=== PATIENT | female | born 1985 | race American Indian/Alaskan Native ===

== ENCOUNTER 2020-09-22 16:29 | Outpatient (CLI) | payer OTHER ==
[2020-09-22] MEDS ORDERED: LACTATED RINGERS 1,000 ML IV ONE (16:55)
[2020-09-22 17:49] LABS: Bilirubin,Urine NEG (Negative); Blood,Urine SM (Negative); Color,Urine Colorless (Yellow); Protein,Urine <15 mg/dL mg/dL (Negative); Urobilinogen,Urine < 2.0 mg/dL (<2.0); WBC,Urine < 1.0 /HPF (0.0-6.0)
[2020-09-22 17:55] LABS: Hematocrit 34.3 % (30.3-42.9); Hemoglobin 11.1 gm/dl (10.1-14.3); Mean Corpuscular HGB Conc 33 % (30-34); Mean Corpuscular Volume 80 fl (79-97); Platelet Count 274 K/mm3 (140-440); Red Blood Count 4.27 M/mm3 (3.65-5.03); Red Cell Distribution Width 13.7 % (13.2-15.2)
[2020-09-22 18:16] LABS: Alanine Aminotransferase 7 units/L (7-56); Uric Acid 5.4 mg/dL (3.5-7.6)
[2020-09-22] MEDS ORDERED: ACETAMINOPHEN 500 MG TAB PO ONE (19:14)
[2020-09-22 19:38] VITALS: BP 131/70
[2020-09-22] MEDS ORDERED: diphenhydrAMINE 50 MG CAP PO NR (20:00)
== END 2020-09-22 20:30 | disposition home or self-care (01) ==
LOC: TRG 16:29 → APU 16:30 → TRG 20:30
PROVIDERS: ATTEND Obstetrics & Gynecology
DX: O09.892 Supervision of other high risk pregnancies, second trimester (principal); Z3A.21 21 weeks gestation of pregnancy
CPT/HCPCS: 36415; 81001; 82565; 83615; 84450; 84460; 84550; 85027; A9270

== ENCOUNTER 2021-01-09 20:32 | Inpatient (IN) | payer OTHER ==
--- NOTE | 2021-01-09 21:00 | History and Physical Report ---
History of Present Illness Date of examination: 01/09/21 Date of admission: 01/09/21 20:32 Chief complaint: direct admission for scheduled induction of labor History of present illness: EDC Confirmation: 01/30/2021 Past History : 2 Term Births: 0 Premature Births: 1 Living Children: 1 Para: 1 Mult. Births: 0 Prev : 0 Prev. attempt? 0 Aborta: 0 Elect. Ab: 0 Spont. 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 Infection History Hx of STD: none HIV Risk Eval: no Hepatitis B Risk Eval: low risk Personal hx. of genital herpes: no Partner hx. of genital herpes: no Rash, Viral, or Febrile illness since last LMP? no Varicella/Chicken Pox Status: Previous Disease TB Risk: no Genetic History ADVANCED MATERNAL AGE Congenital Heart Defect: Mom: no Dad: no Geoff Disease: Mom: no Dad: no Thalassemia Mom: no Dad: no Neural Tube Defect Mom: no Dad: no Down's Syndrome Mom: no Dad: no Montez-Sachs Mom: no Dad: no Sickle Cell Disease/Trait Mom: no Dad: no Hemophilia Mom: no Dad: no Muscular Dystrophy Mom: no Dad: no Cystic Fibrosis Mom: no Dad: no Fozia Chorea Mom: no Dad: no Mental Retardation Mom: no Dad: no Fragile X Mom: no Dad: no Other Genetic/Chromosomal Disorder Mom: no Dad: no Child w/other defect Mom: no Dad: no Enviromental Exposures Xray Exposure: no Medication, drug, or alcohol use since LMP: no Chemical/Other Exposure: no Exposure to Cat Liter: no Hx of Parvovirus (Fifth Disease): no Occupational Exposure to Children: none Active Medications (reviewed today): ASPIRIN 81MG () PNV () Current Allergies: No known allergies Past History Past Medical History: other (see HPI) Past Surgical History: other (see HPI) 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) Family/Genetic History: other (see HPI) Social history: other (see HPI) - Obstetrical History Expected Date of Delivery: 01/30/21 Actual Gestation: 37 Week(s) 0 Day(s) : 2 Para: 1 Hx # Term Pregnancies: 0 Number of Pregnancies: 1 Spontaneous Abortions: 0 Induced : 0 Number of Living Children: 1 Medications and Allergies Allergies Allergy/AdvReac Type Severity Reaction Status Date / Time No Known Allergies Allergy Verified 09/22/20 16:55 Review of Systems Genitourinary: contractions (pt reports irregular contraction pattern felt today), no vaginal bleeding, no leakage of fluid - Physical Exam Breasts: Positive: deferred Cardiovascular: Regular rate Lungs: Positive: Normal air movement Abdomen: Positive: normal appearance, soft Genitourinary (Female): Positive: normal external genitalia, normal perenium Vulva: both: normal Vagina: Positive: normal moisture Uterus: Positive: normal size, normal contour Anus/Rectum: Positive: normal perianal skin Extremities: Positive: normal - Obstetrical FHR: auscultation normal, category 1 Uterine Contraction Monitor Mode: External Cervical Dilatation: 0 Cervical Effacement Percentage: 0 station: -4 Uterine Contraction Pattern: Irregular Uterine Tone Measurement Phase: Resting Results Result Diagrams: 01/09/21 21:15 All other labs normal. Tests: (1) Ct, Ng, Trich vag by RONI ([id number]) Order Note: Clinical Information: SRC:VR SRC:UR Chlamydia by RONI Negative Negative *1 Gonococcus by RONI Negative Negative *2 Trich vag by RONI Negative Negative *3 Tests: (2) Strep Gp B RONI ([id number]) ! Strep Gp B RONI Negative Negative *4 Tests: (1) Profile I ([id number]) Order Note: Clinical Information: WEIGHT:250 HEIGHT:5'7" SRC:UR HBsAg Screen Negative Negative *1 RPR Non Reactive Non Reactive *2 Rubella Antibodies, IgG 1.43 index Immune >0.99 *3 Non-immune <0.90 Equivocal 0.90 - 0.99 Immune >0.99 ABO Grouping O *4 Rh Factor Positive *5 Please note: Prior records for this patient's ABO / Rh type are not available for additional verification. Antibody Screen Negative Negative *6 WBC 9.7 x10E3/uL 3.4-10.8 *7 RBC 4.51 x10E6/uL 3.77-5.28 *8 Hemoglobin 11.7 g/dL 11.1-15.9 *9 Hematocrit 36.7 % 34.0-46.6 *10 MCV 81 fL 79-97 *11 MCH [L] 25.9 pg 26.6-33.0 *12 MCHC 31.9 g/dL 31.5-35.7 *13 RDW 13.2 % 11.7-15.4 *14 Platelets 277 x10E3/uL 150-450 *15 Neutrophils 73 % Not Estab. *16 Lymphs 17 % Not Estab. *17 Monocytes 6 % Not Estab. *18 Eos 2 % Not Estab. *19 Basos 0 % Not Estab. *20 ! Immature Cells <No Reported Value> *21 Neutrophils (Absolute) [H] 7.2 x10E3/uL 1.4-7.0 *22 Lymphs (Absolute) 1.6 x10E3/uL 0.7-3.1 *23 Monocytes(Absolute) 0.5 x10E3/uL 0.1-0.9 *24 Eos (Absolute) 0.2 x10E3/uL 0.0-0.4 *25 Baso (Absolute) 0.0 x10E3/uL 0.0-0.2 *26 ! Immature Granulocytes 2 % Not Estab. *27 ! Immature Grans (Abs) [H] 0.2 x10E3/uL 0.0-0.1 *28 (An elevated percentage of Immature Granulocytes has not been found to be clinically significant as a sole clinical predictor of disease. Does NOT include bands or blast cells. associated physiological leukocytosis may also show increased immature granulocytes without clinical significance.) ! NRBC <No Reported Value> *29 Hematology Comments: <No Reported Value> *30 Tests: (2) Comp. Metabolic Panel (14) ([id number]) Glucose [H] 104 mg/dL 65-99 *31 BUN 7 mg/dL 6-20 *32 Creatinine [L] 0.46 mg/dL 0.57-1.00 *33 ! eGFR If NonAfricn Am 127 mL/min/1.73 >59 *34 ! eGFR If Africn Am 147 mL/min/1.73 >59 *35 [facility] currently reports eGFR in compliance with the current recommendations of the National Kidney Foundation. [facility] will update reporting as new guidelines are published from the NKF-ASN Task force. BUN/Creatinine Ratio 15 9-23 *36 Sodium 138 mmol/L 134-144 *37 Potassium 4.0 mmol/L 3.5-5.2 *38 Chloride 103 mmol/L 96-106 *39 Carbon Dioxide, Total 20 mmol/L 20-29 *40 Calcium 9.2 mg/dL 8.7-10.2 *41 Protein, Total 6.4 g/dL 6.0-8.5 *42 Albumin 4.0 g/dL 3.8-4.8 *43 Globulin, Total 2.4 g/dL 1.5-4.5 *44 A/G Ratio 1.7 1.2-2.2 *45 Bilirubin, Total <0.2 mg/dL 0.0-1.2 *46 Alkaline Phosphatase 40 IU/L 39-117 *47 AST (SGOT) 23 IU/L 0-40 *48 ALT (SGPT) 23 IU/L 0-32 *49 Tests: (3) LD Isoenzymes ([id number]) LDH 153 IU/L 119-226 *50 (LD) Fraction 1 21 % 17-32 *51 (LD) Fraction 2 29 % 25-40 *52 (LD) Fraction 3 23 % 17-27 *53 (LD) Fraction 4 12 % 5-13 *54 (LD) Fraction 5 15 % 4-20 *55 Tests: (4) Creatinine Clearance ([id number]) Creatinine, Urine 53.8 mg/dL Not Estab. *56 Creatinine, Ur 24hr 1103 mg/24 hr 800-1800 *57 Creatinine Clearance [H] 167 mL/min 88-128 *58 The above range is based on 1.73 square meter average body surface area. Tests: (5) Protein Total, Qn, 24-Hr Urine ([id number]) Protein,Total,Urine 17.9 mg/dL Not Estab. *59 Prot,24hr calculated [H] 367 mg/24 hr 30-150 *60 Tests: (6) HB Solu + Rflx Frac ([id number]) Hemoglobin (Hgb) Solubility Negative Negative *61 Tests: (7) HIV Ag/Ab with Reflex ([id number]) HIV Screen 4th Generation wRfx Non Reactive Non Reactive *62 Tests: (8) Gest. Diabetes 1-Hr Screen ([id number]) ! Gestational Diabetes Screen 103 mg/dL 65-139 *63 According to ADA, a glucose threshold of >139 mg/dL after 50-gram load identifies approximately 80% of women with gestational diabetes mellitus, while the sensitivity is further increased to approximately 90% by a threshold of >129 mg/dL. Tests: (9) HCV Ab w/Rflx to Verification ([id number]) ! HCV Ab <0.1 s/co ratio 0.0-0.9 *64 Tests: (10) Comment: ([id number]) ! Comment: SPRCS *65 Non reactive HCV antibody screen is consistent with no HCV infection, unless recent infection is suspected or other evidence exists to indicate HCV infection. Tests: (11) Urine Culture, Routine ([id number]) Urine Culture, Routine Final report *66 Tests: (12) Result ([id number]) ! Result 1 MUG *67 Mixed urogenital paty 10,000-25,000 colony forming units per mL Performed At: , [facility] [address] [id number] Ned Ribera MD Phone: [phone] Performed At: , [facility] [address] [id number] Reyna Johns MD Phone: [phone] Assessment and Plan 35y.o. @37 weeks gestation presents for IOL. Pt denies SWANSON, vision changes, and RUQ pain. Reports +FM. POC with precautions reviewed. Risks and benefits of IOL for mild preeclampsia d/w pt and FOB. Discussed all cervical ripening options. Pt notified IOL may take several days. Pt verbalizes understanding and agrees to proceed with cervidil placement. All questions and concerns addressed. - Patient Problems (1) Preeclampsia Current Visit: Yes Status: Acute Plan to address problem: Preeclampsia labs ordered Strict I & O Serial BP's and VS per preeclampsia protocol monitor SSx closely and notify provider with any changes in status antihypertensives to be ordered and administered, if necessary (2) 37 weeks gestation of Current Visit: Yes Status: Acute (3) Encounter for planned induction of labor Current Visit: Yes Status: Acute Plan to address problem: obtain continuous monitoring orders for IOL and cervical ripening with cervidil placed in EMR
[2021-01-09] MEDS ORDERED: BUTORPHANOL 2 MG/1 ML INJ IV PRN (22:21)
[2021-01-09] MEDS ORDERED: OXYTOCIN 10 UNIT/1 ML INJ IM PRN (22:21)
[2021-01-09] MEDS ORDERED: miSOPROStol 200 MCG TAB PR PRN (22:21)
[2021-01-09] MEDS ORDERED: ONDANSETRON 4 MG/2 ML INJ IV PRN (22:21)
[2021-01-09] MEDS ORDERED: PROMETHAZINE 25 MG TAB PO PRN (22:21)
[2021-01-09] MEDS ORDERED: NALOXONE 0.4 MG/1 ML INJ IV PRN (22:21)
[2021-01-09] MEDS ORDERED: LIDOCAINE (2%) 20 MG/1 ML VIAL 20 ML MDV INFILTRATI ONE (22:21)
[2021-01-09] MEDS ORDERED: TERBUTALINE 1 MG/1 ML INJ SUB-Q PRN (22:21)
[2021-01-09] MEDS ORDERED: LOPERAMIDE 2 MG CAP PO PRN (22:21)
[2021-01-09] MEDS ORDERED: MINERAL OIL 30 ML ORAL LIQD PO PRN (22:21)
[2021-01-09] MEDS ORDERED: ePHEDrine SULFATE 50 MG/1 ML INJ IV PRN (22:21)
[2021-01-09] MEDS ORDERED: DINOPROSTONE 10 MG VAG SUPP VG ONE (22:21)
[2021-01-09] MEDS ORDERED: CARBOPROST TROMETHAMINE 250 MCG/1 ML INJ IM PRN (22:21)
[2021-01-09] MEDS ORDERED: ACETAMINOPHEN 325 MG TAB PO PRN (22:21)
[2021-01-09 22:40] LABS: Hemoglobin 11.5 gm/dl (10.1-14.3); Mean Corpuscular HGB Conc 35 % (30-34); Mean Corpuscular Volume 79 fl (79-97); Platelet Count 266 K/mm3 (140-440); Red Blood Count 4.17 M/mm3 (3.65-5.03)
[2021-01-09] MEDS ORDERED: OXYTOCIN DRIP 30 UNITS/500 ML BAG IV SCH (23:00)
[2021-01-10 00:09] LABS: Alanine Aminotransferase 10 units/L (7-56)
--- NOTE | 2021-01-10 00:27 | Ultrasound Report ---
Limited obstetrical ultrasound INDICATION: 37 week , presentation evaluation Limited evaluation is shows a well-developed fetus with cephalic position. Placenta is not imaged wel l but is free of the internal cervical os. cardiac activity was documented at 150 bpm. Signer Name: Micky Garcia MD Signed: 01/10/2021 12:23 AM Workstation Name: [id number]
[2021-01-10 00:44] LABS: Uric Acid 6.1 mg/dL (3.5-7.6)
[2021-01-10] MEDS: LACTATED RINGERS 1,000 ML IV SCH (07:46)
--- NOTE | 2021-01-10 11:42 | Progress Note ---
Assessment and Plan 35 year old, @ 37.2 being induced for mild Pre-E, denies H/A, epigastric pain, visual changes, Cervidil removed @ 11, cervix fingertip, midposition and soft, reviewed options w/ pt, will do cytotec for further cervical ripening and reassess PRN, pt plans for epidural when in labor, plan reviewed w/ RN - Patient Problems (1) 37 weeks gestation of Current Visit: Yes Status: Acute (2) Encounter for planned induction of labor Current Visit: Yes Status: Acute (3) Preeclampsia Current Visit: Yes Status: Acute Qualifiers: Trimester: third trimester Qualified Code(s): O14.93 - Unspecified pre- eclampsia, third trimester Plan to address problem: Preeclampsia labs collected at admission, reviewed NL Strict I & O Serial BP's and VS per preeclampsia protocol monitor SSx closely and notify provider with any changes in status antihypertensives to be ordered and administered, if necessary mag sulfate to be started once in labor or if B/P become severe Subjective - Subjective Date of service: 01/10/21 Principal diagnosis: IUP @ 37+2; IOL for pre-e Patient reports: movement normal, no new complaints, no loss of fluid, no vaginal bleeding, no contractions Objective - Vital Signs Vital Signs: Vital Signs - 12hr 01/09/21 01/09/21 01/09/21 23:42 23:47 23:52 Temperature Pulse Rate 92 H 80 79 Respiratory Rate Blood Pressure O2 Sat by Pulse 99 99 99 Oximetry 01/09/21 01/10/21 01/10/21 23:57 00:02 00:03 Temperature Pulse Rate 79 61 74 Respiratory Rate Blood Pressure 136/86 O2 Sat by Pulse 100 99 Oximetry 01/10/21 01/10/21 01/10/21 00:07 00:12 00:17 Temperature Pulse Rate 80 80 80 Respiratory Rate Blood Pressure O2 Sat by Pulse 99 99 98 Oximetry 01/10/21 01/10/21 01/10/21 00:22 00:27 00:32 Temperature Pulse Rate 79 76 70 Respiratory Rate Blood Pressure O2 Sat by Pulse 97 98 99 Oximetry 01/10/21 01/10/21 01/10/21 00:33 00:37 00:42 Temperature Pulse Rate 76 81 78 Respiratory Rate Blood Pressure 137/83 O2 Sat by Pulse 99 99 Oximetry 01/10/21 01/10/21 01/10/21 00:47 00:52 01:00 Temperature Pulse Rate 75 81 82 Respiratory Rate Blood Pressure O2 Sat by Pulse 98 99 99 Oximetry 01/10/21 01/10/21 01/10/21 01:05 01:10 01:15 Temperature Pulse Rate 78 71 81 Respiratory Rate Blood Pressure 130/81 O2 Sat by Pulse 98 98 98 Oximetry 01/10/21 01/10/21 01/10/21 01:20 01:25 01:30 Temperature Pulse Rate 74 76 76 Respiratory Rate Blood Pressure O2 Sat by Pulse 99 99 99 Oximetry 01/10/21 01/10/21 01/10/21 01:33 01:35 01:40 Temperature Pulse Rate 68 72 70 Respiratory Rate Blood Pressure 134/74 O2 Sat by Pulse 99 99 Oximetry 01/10/21 01/10/21 01/10/21 01:45 01:50 01:55 Temperature Pulse Rate 72 76 74 Respiratory Rate Blood Pressure O2 Sat by Pulse 99 98 99 Oximetry 01/10/21 01/10/21 01/10/21 02:00 02:03 02:05 Temperature Pulse Rate 76 73 84 Respiratory Rate Blood Pressure 133/74 O2 Sat by Pulse 99 99 Oximetry 01/10/21 01/10/21 01/10/21 02:10 02:15 02:20 Temperature Pulse Rate 77 79 80 Respiratory Rate Blood Pressure O2 Sat by Pulse 98 99 98 Oximetry 01/10/21 01/10/21 01/10/21 02:25 02:30 02:33 Temperature Pulse Rate 69 77 75 Respiratory Rate Blood Pressure 120/69 O2 Sat by Pulse 99 98 Oximetry 01/10/21 01/10/21 01/10/21 02:35 02:40 02:45 Temperature Pulse Rate 73 77 80 Respiratory Rate Blood Pressure O2 Sat by Pulse 98 98 98 Oximetry 01/10/21 01/10/21 01/10/21 02:50 02:55 03:00 Temperature Pulse Rate 80 76 78 Respiratory Rate Blood Pressure O2 Sat by Pulse 98 99 98 Oximetry 01/10/21 01/10/21 01/10/21 03:03 03:05 03:10 Temperature Pulse Rate 76 72 76 Respiratory Rate Blood Pressure 134/69 O2 Sat by Pulse 99 98 Oximetry 01/10/21 01/10/21 01/10/21 03:15 03:20 03:25 Temperature Pulse Rate 66 75 74 Respiratory Rate Blood Pressure O2 Sat by Pulse 97 99 98 Oximetry 01/10/21 01/10/21 01/10/21 03:30 03:33 03:35 Temperature Pulse Rate 75 83 82 Respiratory Rate Blood Pressure 143/73 O2 Sat by Pulse 97 98 Oximetry 01/10/21 01/10/21 01/10/21 03:38 03:40 03:45 Temperature Pulse Rate 75 73 64 Respiratory Rate Blood Pressure O2 Sat by Pulse 94 99 98 Oximetry 01/10/21 01/10/21 01/10/21 03:50 03:55 04:00 Temperature Pulse Rate 72 73 77 Respiratory Rate Blood Pressure O2 Sat by Pulse 98 98 99 Oximetry 01/10/21 01/10/21 01/10/21 04:03 04:05 04:10 Temperature Pulse Rate 75 72 64 Respiratory Rate Blood Pressure 143/77 O2 Sat by Pulse 99 98 Oximetry 01/10/21 01/10/21 01/10/21 04:15 04:20 04:25 Temperature Pulse Rate 81 80 80 Respiratory Rate Blood Pressure O2 Sat by Pulse 98 98 98 Oximetry 01/10/21 01/10/21 01/10/21 04:30 04:37 04:42 Temperature Pulse Rate 82 94 H 81 Respiratory Rate Blood Pressure 115/75 O2 Sat by Pulse 98 99 99 Oximetry 01/10/21 01/10/21 01/10/21 04:47 04:52 04:57 Temperature Pulse Rate 80 76 77 Respiratory Rate Blood Pressure O2 Sat by Pulse 99 99 99 Oximetry 01/10/21 01/10/21 01/10/21 05:02 05:03 05:07 Temperature Pulse Rate 74 76 78 Respiratory Rate Blood Pressure 129/72 O2 Sat by Pulse 99 99 Oximetry 01/10/21 01/10/21 01/10/21 05:12 05:17 05:22 Temperature Pulse Rate 71 76 77 Respiratory Rate Blood Pressure O2 Sat by Pulse 99 99 98 Oximetry 01/10/21 01/10/21 01/10/21 05:27 05:32 05:33 Temperature Pulse Rate 98 H 71 83 Respiratory Rate Blood Pressure 119/68 O2 Sat by Pulse 99 99 Oximetry 01/10/21 01/10/21 01/10/21 05:37 05:42 05:47 Temperature Pulse Rate 83 91 H 80 Respiratory Rate Blood Pressure O2 Sat by Pulse 99 98 98 Oximetry 01/10/21 01/10/21 01/10/21 05:52 05:57 06:02 Temperature Pulse Rate 71 75 68 Respiratory Rate Blood Pressure O2 Sat by Pulse 98 99 99 Oximetry 01/10/21 01/10/21 01/10/21 06:03 06:07 06:12 Temperature Pulse Rate 74 68 68 Respiratory Rate Blood Pressure 124/76 O2 Sat by Pulse 99 98 Oximetry 01/10/21 01/10/21 01/10/21 06:17 06:22 06:27 Temperature Pulse Rate 75 69 65 Respiratory Rate Blood Pressure O2 Sat by Pulse 98 99 99 Oximetry 01/10/21 01/10/21 01/10/21 06:32 06:33 06:37 Temperature Pulse Rate 73 66 78 Respiratory Rate Blood Pressure 124/69 O2 Sat by Pulse 98 98 Oximetry 01/10/21 01/10/21 01/10/21 06:42 06:47 06:52 Temperature Pulse Rate 70 72 72 Respiratory Rate Blood Pressure O2 Sat by Pulse 99 98 98 Oximetry 01/10/21 01/10/21 01/10/21 06:57 07:02 07:03 Temperature Pulse Rate 82 69 81 Respiratory Rate Blood Pressure 129/75 O2 Sat by Pulse 98 98 Oximetry 01/10/21 01/10/21 01/10/21 07:07 07:12 07:17 Temperature Pulse Rate 62 78 73 Respiratory Rate Blood Pressure O2 Sat by Pulse 94 96 98 Oximetry 01/10/21 01/10/21 01/10/21 07:22 07:27 07:32 Temperature Pulse Rate 77 64 77 Respiratory Rate Blood Pressure O2 Sat by Pulse 99 97 98 Oximetry 01/10/21 01/10/21 01/10/21 07:33 07:37 07:42 Temperature 97.5 F L Pulse Rate 75 72 70 Respiratory 68 H Rate Blood Pressure 134/74 O2 Sat by Pulse 98 99 Oximetry 01/10/21 01/10/21 01/10/21 07:47 07:52 07:57 Temperature Pulse Rate 67 69 68 Respiratory Rate Blood Pressure O2 Sat by Pulse 99 99 99 Oximetry 01/10/21 01/10/21 01/10/21 08:02 08:07 08:12 Temperature Pulse Rate 64 74 71 Respiratory Rate Blood Pressure O2 Sat by Pulse 99 98 99 Oximetry 01/10/21 01/10/21 01/10/21 08:17 08:22 08:27 Temperature Pulse Rate 104 H 85 84 Respiratory Rate Blood Pressure O2 Sat by Pulse 99 99 99 Oximetry 01/10/21 01/10/21 01/10/21 08:39 08:43 08:44 Temperature Pulse Rate 80 74 63 Respiratory Rate Blood Pressure 144/83 O2 Sat by Pulse 99 99 Oximetry 01/10/21 01/10/21 01/10/21 08:49 08:54 08:59 Temperature Pulse Rate 83 75 72 Respiratory Rate Blood Pressure O2 Sat by Pulse 98 99 99 Oximetry 01/10/21 01/10/21 01/10/21 09:04 09:09 09:14 Temperature Pulse Rate 66 72 77 Respiratory Rate Blood Pressure O2 Sat by Pulse 99 99 98 Oximetry 01/10/21 01/10/21 01/10/21 09:19 09:24 09:29 Temperature Pulse Rate 79 77 77 Respiratory Rate Blood Pressure O2 Sat by Pulse 99 99 99 Oximetry 01/10/21 01/10/21 01/10/21 09:34 09:52 09:57 Temperature Pulse Rate 79 91 H 79 Respiratory Rate Blood Pressure O2 Sat by Pulse 99 99 99 Oximetry 01/10/21 01/10/21 01/10/21 10:02 10:07 10:12 Temperature Pulse Rate 80 76 78 Respiratory Rate Blood Pressure O2 Sat by Pulse 99 99 99 Oximetry 01/10/21 01/10/21 01/10/21 10:17 10:39 10:44 Temperature Pulse Rate 73 74 77 Respiratory Rate Blood Pressure O2 Sat by Pulse 99 99 99 Oximetry 01/10/21 01/10/21 01/10/21 10:45 10:49 10:54 Temperature 97.5 F L Pulse Rate 75 74 74 Respiratory 17 Rate Blood Pressure 133/77 O2 Sat by Pulse 99 99 Oximetry 01/10/21 01/10/21 11:35 11:36 Temperature Pulse Rate 64 Respiratory Rate Blood Pressure O2 Sat by Pulse 82 L 85 Oximetry - Exam Cardiovascular: Regular rate Lungs: Normal air movement Abdomen: Present: normal appearance, soft Vulva: both: normal Uterus: Present: normal FHR: category 1 Uterine Contraction Monitor Mode: External Cervical Dilatation: 0.5 Cervical Effacement Percentage: 30 station: -2 Uterine Contraction Pattern: Irregular Extremities: normal Deep Tendon Reflex Grade: Normal +2 - Labs Labs: Abnormal Labs 01/09/21 01/09/21 21:15 23:01 MCHC 35 H Creatinine 0.5 L Laboratory Results - last 24 hr 01/09/21 01/09/21 01/09/21 21:15 23:01 23:01 WBC 10.9 RBC 4.17 Hgb 11.5 Hct 33.0 MCV 79 MCH 28 MCHC 35 H RDW 14.0 Plt Count 266 Creatinine Estimated GFR Uric Acid AST ALT Lactate Dehydrogenase Syphilis IgG Antibody Nonreactive Blood Type O POSITIVE Antibody Screen Negative 01/09/21 23:01 WBC RBC Hgb Hct MCV MCH MCHC RDW Plt Count Creatinine 0.5 L Estimated GFR > 60 Uric Acid 6.1 AST 15 ALT 10 Lactate Dehydrogenase 135 Syphilis IgG Antibody Blood Type Antibody Screen
[2021-01-10] MEDS: miSOPROStol 25 MCG TAB PO SCH ×3 (12:12→21:20)
[2021-01-10 15:43] LABS: Mucus,Urine FEW /HPF; WBC,Urine < 1.0 /HPF (0.0-6.0)
[2021-01-10 15:51] LABS: Bilirubin,Urine NEG (Negative); Blood,Urine NEG (Negative); Color,Urine Yellow (Yellow); Protein,Urine <15 mg/dL mg/dL (Negative); Urobilinogen,Urine < 2.0 mg/dL (<2.0)
[2021-01-10] MEDS ORDERED: ZOLPIDEM 5 MG TAB PO PRN (21:15)
[2021-01-11] MEDS: LACTATED RINGERS 1,000 ML IV SCH ×3 (00:30→23:52)
[2021-01-11] MEDS: OXYTOCIN DRIP 30 UNITS/500 ML BAG IV SCH ×2 (00:30→05:36)
--- NOTE | 2021-01-11 08:29 | Progress Note ---
Assessment and Plan Pt sitting in bed, no complaints, SVE performed 0.5/soft, midposition, pt denies H/A, visual disturbances, epigastric pain Will turn off pit, pt will eat breakfast and shower, restart pit @ 1000 4x4 and will cont to monitor, reassess PRN - Patient Problems (1) 37 weeks gestation of Current Visit: Yes Status: Acute (2) Encounter for planned induction of labor Current Visit: Yes Status: Acute (3) Preeclampsia Current Visit: Yes Status: Acute Qualifiers: Trimester: third trimester Qualified Code(s): O14.93 - Unspecified pre- eclampsia, third trimester Plan to address problem: Preeclampsia labs collected at admission, reviewed NL Strict I & O Serial BP's and VS per preeclampsia protocol monitor SSx closely and notify provider with any changes in status antihypertensives to be ordered and administered, if necessary mag sulfate to be started once in labor or if B/P become severe Subjective - Subjective Date of service: 01/11/21 Principal diagnosis: IUP @ 37+2; IOL for pre-e Patient reports: movement normal, no new complaints, no loss of fluid, no vaginal bleeding, no contractions Objective - Vital Signs Vital Signs: Vital Signs - 12hr 01/10/21 01/10/21 01/11/21 22:09 23:02 00:04 Temperature Pulse Rate 96 H 81 93 H Blood Pressure 130/85 132/78 122/70 O2 Sat by Pulse Oximetry 01/11/21 01/11/21 01/11/21 00:30 00:32 00:37 Temperature 97.5 F L Pulse Rate 84 77 Blood Pressure O2 Sat by Pulse 99 99 Oximetry 01/11/21 01/11/21 01/11/21 00:42 00:47 00:52 Temperature Pulse Rate 87 85 84 Blood Pressure O2 Sat by Pulse 99 99 98 Oximetry 01/11/21 01/11/21 01/11/21 00:57 01:02 01:04 Temperature Pulse Rate 78 85 90 Blood Pressure 127/75 O2 Sat by Pulse 99 99 Oximetry 01/11/21 01/11/21 01/11/21 01:07 01:12 01:17 Temperature Pulse Rate 61 90 80 Blood Pressure O2 Sat by Pulse 99 100 99 Oximetry 01/11/21 01/11/21 01/11/21 01:22 01:27 01:32 Temperature Pulse Rate 84 79 95 H Blood Pressure O2 Sat by Pulse 100 100 99 Oximetry 01/11/21 01/11/21 01/11/21 01:37 01:46 01:51 Temperature Pulse Rate 94 H 82 85 Blood Pressure O2 Sat by Pulse 100 99 99 Oximetry 01/11/21 01/11/21 01/11/21 01:56 02:01 02:06 Temperature Pulse Rate 74 82 79 Blood Pressure O2 Sat by Pulse 99 99 98 Oximetry 01/11/21 01/11/21 01/11/21 02:11 02:16 02:21 Temperature Pulse Rate 70 72 73 Blood Pressure O2 Sat by Pulse 99 98 98 Oximetry 01/11/21 01/11/21 01/11/21 02:26 02:31 02:34 Temperature Pulse Rate 74 80 65 Blood Pressure 134/73 O2 Sat by Pulse 97 97 Oximetry 01/11/21 01/11/21 01/11/21 02:36 02:41 02:46 Temperature Pulse Rate 68 70 71 Blood Pressure O2 Sat by Pulse 98 98 98 Oximetry 01/11/21 01/11/21 01/11/21 02:51 02:56 03:01 Temperature Pulse Rate 70 72 79 Blood Pressure O2 Sat by Pulse 98 100 99 Oximetry 01/11/21 01/11/21 01/11/21 03:05 03:06 03:11 Temperature Pulse Rate 63 68 67 Blood Pressure 139/71 O2 Sat by Pulse 99 99 Oximetry 01/11/21 01/11/21 01/11/21 03:16 03:21 03:26 Temperature Pulse Rate 67 72 75 Blood Pressure O2 Sat by Pulse 99 99 100 Oximetry 01/11/21 01/11/21 01/11/21 03:31 03:36 03:41 Temperature Pulse Rate 82 82 74 Blood Pressure O2 Sat by Pulse 99 99 99 Oximetry 01/11/21 01/11/21 01/11/21 03:46 03:51 03:56 Temperature Pulse Rate 73 87 70 Blood Pressure O2 Sat by Pulse 99 99 99 Oximetry 01/11/21 01/11/21 01/11/21 04:01 04:04 04:06 Temperature Pulse Rate 68 76 72 Blood Pressure 125/70 O2 Sat by Pulse 100 99 Oximetry 01/11/21 01/11/21 01/11/21 04:11 04:16 04:21 Temperature Pulse Rate 69 67 74 Blood Pressure O2 Sat by Pulse 99 99 99 Oximetry 01/11/21 01/11/21 01/11/21 04:26 04:31 04:36 Temperature Pulse Rate 74 67 65 Blood Pressure O2 Sat by Pulse 99 99 99 Oximetry 01/11/21 01/11/21 01/11/21 04:41 04:46 04:51 Temperature Pulse Rate 77 93 H 70 Blood Pressure O2 Sat by Pulse 99 100 100 Oximetry 01/11/21 01/11/21 01/11/21 04:56 05:01 05:04 Temperature Pulse Rate 69 70 90 Blood Pressure 134/70 O2 Sat by Pulse 99 99 Oximetry 01/11/21 01/11/21 01/11/21 05:06 05:11 05:16 Temperature Pulse Rate 73 78 80 Blood Pressure O2 Sat by Pulse 99 99 99 Oximetry 01/11/21 01/11/21 01/11/21 05:24 05:29 05:34 Temperature Pulse Rate 83 72 77 Blood Pressure O2 Sat by Pulse 99 99 99 Oximetry 01/11/21 01/11/21 01/11/21 05:39 05:44 05:49 Temperature Pulse Rate 70 71 69 Blood Pressure O2 Sat by Pulse 99 99 99 Oximetry 01/11/21 01/11/21 01/11/21 05:54 05:59 06:04 Temperature Pulse Rate 88 70 69 Blood Pressure 136/68 O2 Sat by Pulse 99 99 99 Oximetry 01/11/21 01/11/21 01/11/21 06:09 06:14 06:19 Temperature Pulse Rate 74 74 69 Blood Pressure O2 Sat by Pulse 98 98 98 Oximetry 01/11/21 01/11/21 01/11/21 06:24 06:29 06:34 Temperature Pulse Rate 77 65 64 Blood Pressure O2 Sat by Pulse 99 98 99 Oximetry 01/11/21 01/11/21 01/11/21 06:39 06:44 06:49 Temperature Pulse Rate 74 66 68 Blood Pressure O2 Sat by Pulse 98 99 99 Oximetry 01/11/21 01/11/21 01/11/21 06:53 06:54 06:59 Temperature Pulse Rate 60 63 72 Blood Pressure O2 Sat by Pulse 94 94 99 Oximetry 01/11/21 01/11/21 01/11/21 07:04 07:09 07:14 Temperature Pulse Rate 98 H 67 64 Blood Pressure 137/88 O2 Sat by Pulse 98 99 99 Oximetry 01/11/21 01/11/21 01/11/21 07:19 07:24 07:29 Temperature Pulse Rate 69 78 65 Blood Pressure O2 Sat by Pulse 99 99 99 Oximetry 01/11/21 01/11/21 01/11/21 07:34 07:39 07:44 Temperature Pulse Rate 64 67 73 Blood Pressure O2 Sat by Pulse 100 100 99 Oximetry 01/11/21 01/11/21 01/11/21 07:49 07:54 07:59 Temperature Pulse Rate 68 66 67 Blood Pressure O2 Sat by Pulse 99 99 99 Oximetry 01/11/21 01/11/21 08:04 08:09 Temperature Pulse Rate 65 76 Blood Pressure 127/69 O2 Sat by Pulse 100 100 Oximetry - Exam Breasts: normal Lungs: Normal air movement Abdomen: Present: normal appearance, soft. Absent: distention, tenderness Vulva: both: normal Uterus: Present: normal FHR: auscultation normal, category 1 Uterine Contraction Monitor Mode: External Cervical Dilatation: 0.5 Cervical Effacement Percentage: 30 station: -2 Uterine Contraction Pattern: Irregular Uterine Tone Measurement Phase: Resting Extremities: normal - Labs Labs: Abnormal Labs 01/09/21 01/09/21 21:15 23:01 MCHC 35 H Creatinine 0.5 L Laboratory Results - last 24 hr 01/09/21 01/10/21 Unknown 09:30 Urine Color Yellow Urine Turbidity Clear Urine pH 7.0 Ur Specific [place] 1.016 Urine Protein <15 mg/dl Urine Glucose (UA) Neg Urine Ketones Neg Urine Blood Neg Urine Nitrite Neg Ur Reducing Substances Not Reportable Urine Bilirubin Neg Urine Ictotest Not Reportable Urine Urobilinogen < 2.0 Ur Leukocyte Esterase Neg Urine WBC (Auto) < 1.0 Urine RBC (Auto) 6.0 U Epithel Cells (Auto) 7.0 Urine Mucus Few Coronavirus (PCR) Negative
[2021-01-11] MEDS ORDERED: OXYTOCIN DRIP 30 UNITS/500 ML BAG IV SCH (10:00)
[2021-01-11] MEDS ORDERED: DINOPROSTONE 10 MG VAG SUPP VG ONE (18:40)
--- NOTE | 2021-01-11 20:29 | Event Note ---
Date: 01/11/21 After 8hours of pitocin to a max of 20Mu, pt had no s/s of labor. pitocin turned off, pt allowed regular diet and PM care. Cervidil placed by RN. no c/o SWANSON/epigastric pain or visual changes.
--- NOTE | 2021-01-12 06:05 | Progress Note ---
Assessment and Plan - Patient Problems (1) Encounter for planned induction of labor Onset Date: ~01/12/21 Current Visit: Yes Status: Acute Plan to address problem: Cervidil due out @ 0745 Pt to be OOB for AM care and breakfast. Pitocin per protocol today. BP 130-120/70, pt denies SWANSON, blurred vision, chest pain. Pt again counseled on serial nature of IOL Voiced understanding. Subjective - Subjective Date of service: 01/12/21 (resting No c/o voiced) Principal diagnosis: IUP @ 37+3; IOL for pre-e Patient reports: movement normal, no new complaints, no loss of fluid, no vaginal bleeding, no contractions Objective - Vital Signs Vital Signs: Vital Signs - 12hr 01/11/21 01/11/21 01/11/21 19:25 19:36 19:41 Temperature Pulse Rate 96 H 86 Respiratory 17 Rate Blood Pressure 117/52 O2 Sat by Pulse 98 99 Oximetry 01/11/21 01/11/21 01/11/21 19:46 19:51 19:56 Temperature Pulse Rate 95 H 85 91 H Respiratory Rate Blood Pressure O2 Sat by Pulse 98 98 98 Oximetry 01/11/21 01/11/21 01/11/21 20:01 20:06 20:07 Temperature Pulse Rate 98 H 99 H 85 Respiratory Rate Blood Pressure 118/58 O2 Sat by Pulse 99 98 Oximetry 01/11/21 01/11/21 01/11/21 20:11 20:16 20:21 Temperature Pulse Rate 85 92 H 101 H Respiratory Rate Blood Pressure O2 Sat by Pulse 99 99 99 Oximetry 01/11/21 01/11/21 01/11/21 20:26 20:31 20:36 Temperature Pulse Rate 89 69 80 Respiratory Rate Blood Pressure O2 Sat by Pulse 98 98 98 Oximetry 01/11/21 01/11/21 01/11/21 20:38 20:41 20:45 Temperature 97.6 F Pulse Rate 75 74 Respiratory Rate Blood Pressure 121/58 O2 Sat by Pulse 98 Oximetry 01/11/21 01/11/21 01/11/21 20:46 20:51 20:56 Temperature Pulse Rate 89 87 84 Respiratory Rate Blood Pressure O2 Sat by Pulse 98 98 98 Oximetry 01/11/21 01/11/21 01/11/21 21:01 21:06 21:07 Temperature Pulse Rate 83 98 H 106 H Respiratory Rate Blood Pressure 120/66 O2 Sat by Pulse 99 97 Oximetry 01/11/21 01/11/21 01/11/21 21:11 21:16 21:21 Temperature Pulse Rate 90 80 79 Respiratory Rate Blood Pressure O2 Sat by Pulse 99 98 98 Oximetry 01/11/21 01/11/21 01/11/21 21:26 21:31 21:36 Temperature Pulse Rate 79 79 81 Respiratory Rate Blood Pressure O2 Sat by Pulse 98 99 97 Oximetry 01/11/21 01/11/21 01/11/21 21:37 21:41 21:46 Temperature Pulse Rate 88 88 80 Respiratory Rate Blood Pressure 129/59 O2 Sat by Pulse 98 98 Oximetry 01/11/21 01/11/21 01/11/21 21:54 21:59 22:04 Temperature Pulse Rate 99 H 91 H 72 Respiratory Rate Blood Pressure O2 Sat by Pulse 99 98 98 Oximetry 01/11/21 01/11/21 01/11/21 22:07 22:09 22:14 Temperature Pulse Rate 75 72 69 Respiratory Rate Blood Pressure 119/61 O2 Sat by Pulse 98 98 Oximetry 01/11/21 01/11/21 01/11/21 22:19 22:24 22:29 Temperature Pulse Rate 78 72 64 Respiratory Rate Blood Pressure O2 Sat by Pulse 98 98 97 Oximetry 01/11/21 01/11/21 01/11/21 22:34 22:37 22:39 Temperature Pulse Rate 77 79 76 Respiratory Rate Blood Pressure 129/79 O2 Sat by Pulse 98 98 Oximetry 01/11/21 01/11/21 01/11/21 22:44 22:49 22:54 Temperature Pulse Rate 75 71 71 Respiratory Rate Blood Pressure O2 Sat by Pulse 98 98 97 Oximetry 01/11/21 01/11/21 01/11/21 22:59 23:04 23:07 Temperature Pulse Rate 79 67 70 Respiratory Rate Blood Pressure 147/74 O2 Sat by Pulse 97 97 Oximetry 01/11/21 01/11/21 01/11/21 23:09 23:14 23:19 Temperature Pulse Rate 79 73 69 Respiratory Rate Blood Pressure O2 Sat by Pulse 98 98 98 Oximetry 01/11/21 01/11/21 01/11/21 23:24 23:29 23:34 Temperature Pulse Rate 65 75 77 Respiratory Rate Blood Pressure O2 Sat by Pulse 97 97 97 Oximetry 01/11/21 01/11/21 01/11/21 23:37 23:39 23:44 Temperature Pulse Rate 86 63 78 Respiratory Rate Blood Pressure 133/72 O2 Sat by Pulse 97 97 Oximetry 01/11/21 01/11/21 01/11/21 23:49 23:52 23:54 Temperature 97.8 F Pulse Rate 80 75 Respiratory 17 Rate Blood Pressure O2 Sat by Pulse 98 97 Oximetry 01/11/21 01/11/21 01/12/21 23:58 23:59 00:04 Temperature Pulse Rate 65 63 103 H Respiratory Rate Blood Pressure O2 Sat by Pulse 91 97 99 Oximetry 01/12/21 01/12/21 01/12/21 00:07 00:09 00:14 Temperature Pulse Rate 88 75 98 H Respiratory Rate Blood Pressure 134/79 O2 Sat by Pulse 97 98 Oximetry 01/12/21 01/12/21 01/12/21 00:19 00:32 00:37 Temperature Pulse Rate 93 H 86 84 Respiratory Rate Blood Pressure 120/73 O2 Sat by Pulse 99 98 97 Oximetry 01/12/21 01/12/21 01/12/21 00:42 00:47 00:52 Temperature Pulse Rate 74 79 77 Respiratory Rate Blood Pressure O2 Sat by Pulse 98 98 98 Oximetry 01/12/21 01/12/21 01/12/21 00:57 01:02 01:07 Temperature Pulse Rate 65 78 76 Respiratory Rate Blood Pressure 129/73 O2 Sat by Pulse 98 98 99 Oximetry 01/12/21 01/12/21 01/12/21 01:12 01:17 01:22 Temperature Pulse Rate 68 63 75 Respiratory Rate Blood Pressure O2 Sat by Pulse 98 98 98 Oximetry 01/12/21 01/12/21 01/12/21 01:27 01:32 01:37 Temperature Pulse Rate 92 H 71 68 Respiratory Rate Blood Pressure 123/74 O2 Sat by Pulse 98 98 98 Oximetry 01/12/21 01/12/21 01/12/21 01:42 01:47 01:52 Temperature Pulse Rate 104 H 79 66 Respiratory Rate Blood Pressure O2 Sat by Pulse 99 98 97 Oximetry 01/12/21 01/12/21 01/12/21 01:57 01:59 02:02 Temperature Pulse Rate 82 76 85 Respiratory Rate Blood Pressure O2 Sat by Pulse 98 91 87 Oximetry 01/12/21 01/12/21 01/12/21 02:07 02:12 02:17 Temperature Pulse Rate 69 78 76 Respiratory Rate Blood Pressure 157/75 O2 Sat by Pulse 98 98 98 Oximetry 01/12/21 01/12/21 01/12/21 02:22 02:24 02:27 Temperature Pulse Rate 65 66 83 Respiratory Rate Blood Pressure O2 Sat by Pulse 97 93 98 Oximetry 01/12/21 01/12/21 01/12/21 02:32 02:37 02:42 Temperature Pulse Rate 68 66 65 Respiratory Rate Blood Pressure 126/78 O2 Sat by Pulse 97 98 98 Oximetry 01/12/21 01/12/21 01/12/21 02:47 02:52 02:57 Temperature Pulse Rate 59 L 67 83 Respiratory Rate Blood Pressure O2 Sat by Pulse 98 98 99 Oximetry 01/12/21 01/12/21 01/12/21 03:02 03:07 03:17 Temperature Pulse Rate 72 59 L 84 Respiratory Rate Blood Pressure 133/77 O2 Sat by Pulse 98 98 98 Oximetry 01/12/21 01/12/21 01/12/21 03:22 03:27 03:32 Temperature Pulse Rate 75 71 77 Respiratory Rate Blood Pressure O2 Sat by Pulse 98 98 98 Oximetry 01/12/21 01/12/21 01/12/21 03:37 03:42 03:47 Temperature Pulse Rate 67 64 70 Respiratory Rate Blood Pressure 127/74 O2 Sat by Pulse 98 98 98 Oximetry 01/12/21 01/12/21 01/12/21 03:52 03:57 04:02 Temperature Pulse Rate 72 74 72 Respiratory Rate Blood Pressure O2 Sat by Pulse 98 98 98 Oximetry 01/12/21 01/12/21 01/12/21 04:07 04:12 04:17 Temperature Pulse Rate 77 70 67 Respiratory Rate Blood Pressure 126/76 O2 Sat by Pulse 98 97 98 Oximetry 01/12/21 01/12/21 01/12/21 04:22 04:27 04:32 Temperature Pulse Rate 53 L 63 69 Respiratory Rate Blood Pressure O2 Sat by Pulse 98 98 98 Oximetry 01/12/21 01/12/21 01/12/21 04:37 04:42 04:46 Temperature Pulse Rate 73 65 65 Respiratory Rate Blood Pressure 132/72 O2 Sat by Pulse 97 98 90 Oximetry 01/12/21 01/12/2101/12/21 04:47 04:52 04:54 Temperature Pulse Rate 61 82 91 H Respiratory Rate Blood Pressure O2 Sat by Pulse 94 98 94 Oximetry 01/12/21 01/12/21 01/12/21 04:57 05:02 05:07 Temperature Pulse Rate 53 L 76 61 Respiratory Rate Blood Pressure 136/75 O2 Sat by Pulse 98 97 97 Oximetry 01/12/21 01/12/21 01/12/21 05:12 05:17 05:22 Temperature Pulse Rate 72 70 78 Respiratory Rate Blood Pressure O2 Sat by Pulse 98 98 97 Oximetry 01/12/21 01/12/21 01/12/21 05:27 05:32 05:37 Temperature Pulse Rate 71 68 68 Respiratory Rate Blood Pressure 129/76 O2 Sat by Pulse 98 97 98 Oximetry 01/12/21 01/12/21 01/12/21 05:42 05:47 05:52 Temperature Pulse Rate 75 64 58 L Respiratory Rate Blood Pressure O2 Sat by Pulse 99 98 98 Oximetry 01/12/21 05:57 Temperature Pulse Rate 60 Respiratory Rate Blood Pressure O2 Sat by Pulse 98 Oximetry - Exam Breasts: deferred Cardiovascular: Regular rate Lungs: Normal air movement Abdomen: Present: normal appearance, soft. Absent: distention, tenderness Uterus: Present: normal FHR: auscultation normal, category 1 Uterine Contraction Monitor Mode: External Uterine Contraction Pattern: Irregular Uterine Tone Measurement Phase: Resting Uterine Contraction Intensity: Mild Extremities: normal Deep Tendon Reflex Grade: Normal +2 - Labs Labs: Abnormal Labs 01/09/21 01/09/21 21:15 23:01 MCHC 35 H Creatinine 0.5 L
[2021-01-12] MEDS ORDERED: OXYTOCIN DRIP 30 UNITS/500 ML BAG IV SCH (09:00)
[2021-01-12] MEDS: LACTATED RINGERS 1,000 ML IV SCH ×2 (09:51→21:05)
--- NOTE | 2021-01-12 12:22 | Event Note ---
Date: 01/12/21 To patient bedside for evaluation. Recent position change following variable deceleration and being up to restroom. Patient resting well, notes some intermittent cramping. SVE 0.5/40/-3. FHT adjusted and Cat 1 FHT noted. Pitocin infusing at 16 milliunits and titrated up. Contrations noted on monitor. Will continue with IOL.
--- NOTE | 2021-01-12 16:41 | Event Note ---
Date: 01/12/21 (FHTs difficult to trace) Noted that baby has been very active today and difficult to trace. SVE 1,40,-4 No presenting part palpated. Stat US ordered for position Pt made aware of concerns. Dr Garcia notified
--- NOTE | 2021-01-12 18:03 | Ultrasound Report ---
Limited OB ultrasound INDICATION: Possible breech FINDINGS: There is a single live intrauterine in cephalic position. heart rate is 1 4 1 bpm. IMPRESSION: Single live intrauterine in cephalic position Signer Name: Kian Chery MD Signed: 01/12/2021 5:59 PM Workstation Name: [id number]
[2021-01-12] MEDS ORDERED: fentaNYL 100 MCG/2 ML INJ IV PRN (19:46)
--- NOTE | 2021-01-12 19:53 | Progress Note ---
Assessment and Plan A: 35 y.o. @ 37.3 wks, IOL for pre eclampsia. Cervical exam /4. Cook's Catheter placed. P: Restart Pitocin with Cook's Catheter placement. Continue to monitor for s/sx of worsening pre eclampsia. Subjective - Subjective Date of service: 01/12/21 (Cooks Catheter placed.) Principal diagnosis: IUP @ 37+3; IOL for pre-e Patient reports: movement normal, no new complaints, no loss of fluid, no vaginal bleeding, no contractions Objective - Vital Signs Vital Signs: Vital Signs - 12hr 01/12/21 01/12/21 01/12/21 08:04 09:38 09:43 Temperature Pulse Rate 98 H 87 Respiratory Rate Blood Pressure O2 Sat by Pulse 99 99 98 Oximetry 01/12/21 01/12/21 01/12/21 09:48 09:53 09:58 Temperature Pulse Rate 90 86 86 Respiratory Rate Blood Pressure O2 Sat by Pulse 99 98 99 Oximetry 01/12/21 01/12/21 01/12/21 10:03 10:08 10:13 Temperature Pulse Rate 80 81 78 Respiratory Rate Blood Pressure O2 Sat by Pulse 98 98 98 Oximetry 01/12/21 01/12/21 01/12/21 10:18 10:23 10:28 Temperature Pulse Rate 77 86 76 Respiratory Rate Blood Pressure 118/61 O2 Sat by Pulse 99 97 99 Oximetry 01/12/21 01/12/21 01/12/21 10:33 10:38 10:43 Temperature Pulse Rate 78 72 69 Respiratory Rate Blood Pressure O2 Sat by Pulse 98 99 98 Oximetry 01/12/21 01/12/21 01/12/21 10:48 10:53 10:58 Temperature Pulse Rate 85 73 83 Respiratory Rate Blood Pressure 122/66 O2 Sat by Pulse 98 94 99 Oximetry 01/12/21 01/12/21 01/12/21 11:03 11:08 11:13 Temperature Pulse Rate 76 74 82 Respiratory Rate Blood Pressure O2 Sat by Pulse 98 98 98 Oximetry 01/12/21 01/12/21 01/12/21 11:18 11:23 11:28 Temperature Pulse Rate 78 75 96 H Respiratory Rate Blood Pressure 116/58 O2 Sat by Pulse 98 98 98 Oximetry 01/12/21 01/12/21 01/12/21 11:33 11:38 11:43 Temperature Pulse Rate 69 70 75 Respiratory Rate Blood Pressure O2 Sat by Pulse 98 99 98 Oximetry 01/12/21 01/12/21 01/12/21 11:48 11:53 11:58 Temperature Pulse Rate 83 81 91 H Respiratory Rate Blood Pressure 130/81 O2 Sat by Pulse 99 98 98 Oximetry 01/12/21 01/12/21 01/12/21 12:03 12:08 12:13 Temperature Pulse Rate 75 81 80 Respiratory Rate Blood Pressure O2 Sat by Pulse 99 99 98 Oximetry 01/12/21 01/12/21 01/12/21 12:18 12:23 12:28 Temperature Pulse Rate 73 70 71 Respiratory Rate Blood Pressure 131/76 O2 Sat by Pulse 99 98 99 Oximetry 01/12/21 01/12/21 01/12/21 12:33 12:38 12:43 Temperature Pulse Rate 79 90 78 Respiratory Rate Blood Pressure O2 Sat by Pulse 98 99 98 Oximetry 01/12/21 01/12/21 01/12/21 12:48 12:55 13:00 Temperature Pulse Rate 73 73 69 Respiratory Rate Blood Pressure O2 Sat by Pulse 99 97 99 Oximetry 01/12/21 01/12/21 01/12/21 13:05 13:10 13:15 Temperature Pulse Rate 67 72 70 Respiratory Rate Blood Pressure O2 Sat by Pulse 99 98 98 Oximetry 01/12/21 01/12/21 01/12/21 13:20 13:27 13:32 Temperature Pulse Rate 85 81 78 Respiratory Rate Blood Pressure O2 Sat by Pulse 99 99 98 Oximetry 01/12/21 01/12/21 01/12/21 13:37 13:42 13:47 Temperature Pulse Rate 92 H 69 69 Respiratory Rate Blood Pressure O2 Sat by Pulse 98 99 99 Oximetry 01/12/21 01/12/21 01/12/21 14:00 14:05 14:10 Temperature 97.9 F Pulse Rate 67 69 72 Respiratory 18 Rate Blood Pressure O2 Sat by Pulse 98 100 99 Oximetry 01/12/21 01/12/21 01/12/21 14:15 14:20 14:25 Temperature Pulse Rate 70 80 71 Respiratory Rate Blood Pressure O2 Sat by Pulse 99 99 98 Oximetry 01/12/21 01/12/21 01/12/21 14:30 14:35 14:40 Temperature Pulse Rate 77 74 72 Respiratory Rate Blood Pressure 127/67 O2 Sat by Pulse 99 100 99 Oximetry 01/12/21 01/12/21 01/12/21 14:45 14:50 14:55 Temperature Pulse Rate 68 87 68 Respiratory Rate Blood Pressure O2 Sat by Pulse 99 98 99 Oximetry 01/12/21 01/12/21 01/12/21 14:58 15:00 15:05 Temperature Pulse Rate 85 83 82 Respiratory Rate Blood Pressure 137/74 O2 Sat by Pulse 99 99 Oximetry 01/12/21 01/12/21 01/12/21 15:10 15:41 15:46 Temperature Pulse Rate 93 H 84 78 Respiratory Rate Blood Pressure O2 Sat by Pulse 97 98 99 Oximetry 01/12/21 01/12/21 01/12/21 15:51 15:56 15:58 Temperature Pulse Rate 80 78 79 Respiratory Rate Blood Pressure 134/90 O2 Sat by Pulse 99 98 Oximetry 01/12/21 01/12/21 01/12/21 16:01 16:06 16:11 Temperature Pulse Rate 71 71 76 Respiratory Rate Blood Pressure O2 Sat by Pulse 98 99 99 Oximetry 01/12/21 01/12/21 01/12/21 16:16 16:24 16:29 Temperature Pulse Rate 77 64 72 Respiratory Rate Blood Pressure 142/89 O2 Sat by Pulse 99 97 100 Oximetry 01/12/21 01/12/21 01/12/21 16:34 16:39 16:44 Temperature Pulse Rate 71 69 70 Respiratory Rate Blood Pressure O2 Sat by Pulse 100 100 99 Oximetry 01/12/21 01/12/21 01/12/21 16:49 16:54 16:56 Temperature Pulse Rate 71 63 83 Respiratory Rate Blood Pressure O2 Sat by Pulse 100 99 94 Oximetry 01/12/21 01/12/21 01/12/21 16:58 18:00 18:10 Temperature 97.7 F Pulse Rate 72 91 H Respiratory 17 Rate Blood Pressure 137/83 O2 Sat by Pulse 98 100 Oximetry 01/12/21 01/12/21 01/12/21 18:11 18:15 18:20 Temperature Pulse Rate 93 H 98 H 89 Respiratory Rate Blood Pressure 134/74 O2 Sat by Pulse 99 99 Oximetry 01/12/21 01/12/21 01/12/21 18:25 18:30 18:35 Temperature Pulse Rate 89 89 95 H Respiratory Rate Blood Pressure O2 Sat by Pulse 99 100 99 Oximetry 01/12/21 01/12/21 01/12/21 18:40 18:45 18:50 Temperature Pulse Rate 95 H 86 88 Respiratory Rate Blood Pressure O2 Sat by Pulse 99 98 99 Oximetry 01/12/21 01/12/21 01/12/21 18:55 19:00 19:05 Temperature Pulse Rate 84 97 H 91 H Respiratory Rate Blood Pressure O2 Sat by Pulse 98 98 100 Oximetry 01/12/21 01/12/21 01/12/21 19:10 19:15 19:20 Temperature Pulse Rate 90 90 92 H Respiratory Rate Blood Pressure O2 Sat by Pulse 99 99 100 Oximetry - Exam Narrative Exam: Explained Cook's Catheter to patient and plan to place and then have Pitocin in the IV with the catheter placed. Pt verbalized understanding and agreed to plan of care. Cook's Catheter placed and uterine and vaginal balloons inflated to 30 ml. The catheter was placed without difficulty. Will also have Pitocin IV 2X2. Pt denies SWANSON, blurred vision, spots before her eyes, chest pain, shortness of breath, and upper abdominal pain. Blood pressure ranges have mostly been 116-137/60-80's. Breasts: deferred Cardiovascular: Regular rate Lungs: Normal air movement Abdomen: Present: normal appearance, soft Vulva: both: normal Uterus: Present: normal FHR: category 1 Uterine Contraction Monitor Mode: External Cervical Dilatation: 1 Cervical Effacement Percentage: 50 station: -4 Uterine Contraction Pattern: Absent Extremities: normal - Labs Labs: Abnormal Labs 01/09/21 01/09/21 21:15 23:01 MCHC 35 H Creatinine 0.5 L
[2021-01-12] MEDS ORDERED: LACTATED RINGERS 1,000 ML IV SCH (20:00)
[2021-01-12] MEDS ORDERED: diphenhydrAMINE 25 MG CAP PO PRN (20:00)
--- NOTE | 2021-01-12 22:14 | Event Note ---
Date: 01/12/21 (Balloon out) Went to go check on patient and she was crying. Stating that she was a little frustrated with the process. Her Cook's Catheter had fallen out. Cervical exam . Spoke with patient regarding options. Will try Cytotec vaginally at this time and patient agreed to this plan. Answered her questions regarding her diagnosis of pre eclampsia and why IOL was recommended. All questions and concerns addressed.
[2021-01-12] MEDS: miSOPROStol 25 MCG TAB VG SCH (23:44)
[2021-01-13] MEDS: miSOPROStol 25 MCG TAB VG SCH (03:54)
[2021-01-13] MEDS: LACTATED RINGERS 1,000 ML IV SCH (05:58)
--- NOTE | 2021-01-13 07:51 | Progress Note ---
<REJI CEBALLOS - Last Filed: 01/13/21 07:44> Assessment and Plan Patient denies feeling ctx or cramping after second dose of vaginal cytotec. She is requesting a c/s. pt states she is uncomfortable laying in the bed for the past 4 days without and sign of labor. Pt instructed to be NPO. Dr. Hutchison updated. Nursing staff aware. Pt denies SWANSON, visual changes or epigastric pain. - Patient Problems (1) 37 weeks gestation of Current Visit: Yes Status: Acute (2) Encounter for planned induction of labor Onset Date: ~01/12/21 Current Visit: Yes Status: Acute (3) Preeclampsia Current Visit: Yes Status: Acute Qualifiers: Trimester: third trimester Qualified Code(s): O14.93 - Unspecified pre- eclampsia, third trimester Subjective - Subjective Date of service: 01/13/21 Principal diagnosis: IUP @ 37+4; IOL for pre-e Patient reports: movement normal, no new complaints, no loss of fluid, no vaginal bleeding, no contractions Objective - Vital Signs Vital Signs: Vital Signs - 12hr 01/12/21 01/13/21 01/13/21 21:04 00:20 04:21 Temperature 97.6 F 98.7 F Pulse Rate 93 H 78 Respiratory 16 Rate Blood Pressure 135/72 119/58 O2 Sat by Pulse Oximetry O2 Sat by Pulse Oximetry [ Bilateral] 01/13/21 01/13/21 01/13/21 07:02 07:07 07:12 Temperature Pulse Rate 75 77 Respiratory Rate Blood Pressure O2 Sat by Pulse 100 99 Oximetry O2 Sat by Pulse 100 Oximetry [ Bilateral] 01/13/21 01/13/21 01/13/21 07:17 07:22 07:27 Temperature Pulse Rate 69 73 71 Respiratory Rate Blood Pressure O2 Sat by Pulse 99 99 100 Oximetry O2 Sat by Pulse Oximetry [ Bilateral] 01/13/21 01/13/21 07:34 07:39 Temperature Pulse Rate 85 85 Respiratory Rate Blood Pressure O2 Sat by Pulse 99 100 Oximetry O2 Sat by Pulse Oximetry [ Bilateral] - Exam Cardiovascular: Regular rate Lungs: Normal air movement Abdomen: Present: normal appearance, soft Uterus: Present: normal FHR: auscultation normal, category 1 Uterine Contraction Monitor Mode: External Uterine Contraction Pattern: Absent Uterine Tone Measurement Phase: Resting Extremities: normal Deep Tendon Reflex Grade: Normal +2 - Labs Labs: Abnormal Labs 01/09/21 01/09/21 21:15 23:01 MCHC 35 H Creatinine 0.5 L <GURVINDER HUTCHISON - Last Filed: 01/13/21 09:15> Assessment and Plan Options reviewed.Risk associated with delivery were discussed, including but not limited to, bleeding that may require blood transfusion, infection that may be life threatening, injury to adjacent organs specifically bowel or bladder that may require further surgeries, or major vascular injury. She was also informed that when she has had a delivery she may require repeat deliveries for all subsequent pregnancies. Questions were encouraged and answered, patient voiced understanding and desires to proceed with delivery. Consents were reviewed and signed. Objective - Vital Signs Vital Signs: Vital Signs - 12hr 01/13/21 01/13/21 01/13/21 00:20 04:21 07:02 Temperature 98.7 F Pulse Rate 78 Blood Pressure 119/58 O2 Sat by Pulse Oximetry O2 Sat by Pulse 100 Oximetry [ Bilateral] 01/13/21 01/13/21 01/13/21 07:07 07:12 07:17 Temperature Pulse Rate 75 77 69 Blood Pressure O2 Sat by Pulse 100 99 99 Oximetry O2 Sat by Pulse Oximetry [ Bilateral] 01/13/21 01/13/21 01/13/21 07:22 07:27 07:34 Temperature Pulse Rate 73 71 85 Blood Pressure O2 Sat by Pulse 99 100 99 Oximetry O2 Sat by Pulse Oximetry [ Bilateral] 01/13/21 01/13/21 01/13/21 07:39 07:44 07:49 Temperature Pulse Rate 85 78 74 Blood Pressure O2 Sat by Pulse 100 99 99 Oximetry O2 Sat by Pulse Oximetry [ Bilateral] 01/13/21 01/13/21 01/13/21 07:54 07:59 08:04 Temperature Pulse Rate 74 73 80 Blood Pressure O2 Sat by Pulse 99 99 100 Oximetry O2 Sat by Pulse Oximetry [ Bilateral] 01/13/21 01/13/21 01/13/21 08:09 08:14 08:19 Temperature Pulse Rate 82 74 77 Blood Pressure O2 Sat by Pulse 100 100 99 Oximetry O2 Sat by Pulse Oximetry [ Bilateral] 01/13/21 01/13/21 08:24 08:29 Temperature Pulse Rate 89 73 Blood Pressure O2 Sat by Pulse 100 100 Oximetry O2 Sat by Pulse Oximetry [ Bilateral] - Labs Labs: Abnormal Labs 01/09/21 01/09/21 21:15 23:01 MCHC 35 H Creatinine 0.5 L
[2021-01-13] MEDS ORDERED: METOCLOPRAMIDE 10 MG/2 ML INJ IV SCH (08:00)
[2021-01-13] MEDS ORDERED: LACTATED RINGERS 1,000 ML IV SCH ×2 (08:00→10:45)
[2021-01-13] MEDS ORDERED: FAMOTIDINE 20 MG/2 ML INJ IV SCH (08:00)
[2021-01-13] MEDS ORDERED: BICITRA ORAL LIQD 30ML PO SCH (08:00)
--- NOTE | 2021-01-13 08:27 | Anesthesia Day of Surgery ---
Anesthesia Day of Surgery - Day of Surgery Patient Examined: Yes Patient H&P Reviewed: Yes Patient is NPO: Yes Beta Blockers: No Cardiac Clearance: No Pulmonary Clearance: No Jamil's Test: N/A
--- NOTE | 2021-01-13 08:27 | Anesthesia Consultation ---
Anesthesia Consult and Med Hx Date of service: 01/13/21 - Airway Anesthetic Teeth Evaluation: Good ROM Head & Neck: Adequate Mental/Hyoid Distance: Adequate Mallampati Class: Class III Intubation Access Assessment: Possibly Difficult - Pulmonary Exam CTA: Yes - Cardiac Exam Cardiac Exam: RRR - Pre-Operative Health Status ASA Pre-Surgery Classification: ASA2 Proposed Anesthetic Plan: Spinal Nerve Block: TAP - Pulmonary Hx Smoking: No Hx Asthma: No Hx Sleep Apnea: No - Cardiovascular System Hx Hypertension: Yes (pre eclampsia) Hx Heart Attack/AMI: No Hx Angina: No - Central Nervous System Hx Seizures: No Hx Psychiatric Problems: No - Gastrointestinal Hx Gastroesophageal Reflux Disease: No - Endocrine Hx Renal Disease: No Hx Liver Disease: No Hx Insulin Dependent Diabetes: No Hx Non-Insulin Dependent Diabetes: No Hx Hypothyroidism: No Hx Hyperthyroidism: No - Hematic Hx Anemia: No Hx Sickle Cell Disease: No - Other Systems Hx Alcohol Use: No Hx Obesity: Yes
[2021-01-13] MEDS ORDERED: ceFAZolin/Water 2 GM/20 ML 2 GM/20 ML SYRINGE IV ONE (08:39)
[2021-01-13] MEDS ORDERED: WATER FOR IRRIG STERILE 1,500 ML BOTTLE IR ONE (09:16)
[2021-01-13] MEDS ORDERED: ceFAZolin/STERILE WATER 2 GM/20 ML SYRINGE IV ONE (09:16)
[2021-01-13] MEDS ORDERED: SODIUM CHLORIDE 0.9% IRR 1,500 ML BOTTLE IR ONE (09:16)
[2021-01-13] MEDS ORDERED: ceFAZolin 1 GM VIAL ONE (09:20)
[2021-01-13] MEDS ORDERED: dexAMETHasone 20 MG/5 ML VIAL ONE (09:20)
[2021-01-13] MEDS ORDERED: KETOROLAC 30 MG/1 ML INJ ONE (09:20)
[2021-01-13] MEDS ORDERED: ONDANSETRON 4 MG/2 ML INJ ONE ×2 (09:20)
[2021-01-13] MEDS ORDERED: BUPIVACAINE/PF (0.5%) 5 MG/1 ML 30 ML VIAL INFILTRATI ONE (09:20)
--- NOTE | 2021-01-13 09:51 | Progress Note ---
Spinal Anesthesia Block - Spinal Anesthesia Block Start Time: 09:20 Stop Time: :30 Performed by:: STEPHEN CONLEY (Stephen Morrison SRNA) Procedure: Spinal anesthesia block is being performed for [C/S]. H&P, labs have been reviewed. Patient's questions and concerns have been answered. Informed consent has been performed. Timeout has was performed. Patient in sitting position on side of bed. Sterile prep and drape was performed. 3 mL 1% lid ocaine skin wheal at L [3]-L [4]. Needle introducer advanced. 25-gauge spinal needle advanced, [+] CSF [-] blood. [Marcaine 10mg and Precedex 5mcg] Spinal dose was given. All needles removed. Patient tolerated procedure well.
[2021-01-13] MEDS ORDERED: PHENYLEPHRINE/NS 1,000 MCG/10 ML SYRINGE (OR USE) IV ONE (10:42)
[2021-01-13] MEDS ORDERED: LANOLIN/ZINC/DIMETHICONE (LANSINOH) 7 GM TP PRN (10:43)
[2021-01-13] MEDS ORDERED: WITCH HAZEL/ GLYCERIN PAD TP PRN (10:43)
[2021-01-13] MEDS ORDERED: NALOXONE 0.4 MG/1 ML INJ IV PRN (10:43)
[2021-01-13] MEDS ORDERED: MORPHINE 2 MG/1 ML INJ IV PRN (10:52)
[2021-01-13] MEDS ORDERED: HYDROcodone/ACETAMINOPHEN 5-325 MG TAB PO PRN (10:52)
[2021-01-13] MEDS ORDERED: MAGNESIUM HYDROXIDE (MOM) ORAL LIQD UDC PO PRN (10:55)
[2021-01-13] MEDS ORDERED: SENNOSIDES 8.6 MG TAB PO PRN (10:55)
[2021-01-13] MEDS ORDERED: MORPHINE 4 MG/1 ML INJ IV PRN (10:55)
[2021-01-13] MEDS ORDERED: PROMETHAZINE 25 MG RECT SUPP PR PRN (10:55)
[2021-01-13] MEDS ORDERED: SIMETHICONE 80 MG CHEW TAB PO PRN (10:55)
--- NOTE | 2021-01-13 11:12 | Operative Report ---
Operative Report Operative Report: Date of operation: 01/13/2021 Pre-operative diagnosis: 1. 37 weeks gestational age 2. Preeclampsia 3. Failed induction of labor patient desires to proceed with primary delivery 4. BMI 42.9 kg/m 5. Advanced maternal age Post-operative diagnosis: 1. 37 weeks gestational age 2. Preeclampsia 3. Failed induction of labor patient desires to proceed with primary delivery 4. BMI 42.9 kg/m 5. Advanced maternal age 6. Pelvic adhesion Procedure name(s): Primary low transverse uterine incision Surgeon: Mercedes Hutchison MD Newswriter: Rachael Andrew Anesthesia: Spinal QBL: 489 mL Urine output: 80 mL of clear urine out at the end of the procedure Fluids: 800 mL Findings: Liveborn female infant weight 6 Lbs. 14 oz. Apgars of 9 and 9 at one and 5 minutes. 1 cm subserosal uterine fibroid was noted. Thin adhesions of the right ovary to the right fallopian tube as well as adhesions covering the ovaries bilaterally. Procedure: Patient was taking to the operating room. Spinal anesthesia was placed. Patient was then prepped and draped in the usual sterile fashion Timeout was performed. Once an appropriate level of anesthesia was noted, a Pfannenstiel incision was made and extended the fascia which was incised and extended lateral direction. The overlying fascia was sharply dissected away from the underlying rectus muscles in the superior inferior direction. The midline was entered bluntly. Bladder blade was placed. Vesicouterine fold was incised with blunt dissection bladder flap was created. A transverse incision was made in the lower uterine segment and extended superolateral direction with finger fractionation. Clear fluid was noted. was delivered from the cephalic position, with spontaneous cry and excellent tone. Nuchal cord x2 was noted that was released over the infant's head with delivery.Mouth and nose bulb suctioned. Cord was doubly clamped and cut was given to the resuscitation team present. Placenta was delivered. The uterus was exteriorized and cleaned of any further placental tissue and products of conception. Uterine incision was approximated using 0 Vicryl in a running interlocking stitch followed by further suture of 0 Vicryl in imbricating fashion. When hemostasis was noted the uterus was allowed back in the pelvic cavity. Pelvis was irrigated with warm normal saline. Once hemostasis was noted the rectus muscles were approximated using 0 Vicryl interrupted simple sti tches 3. Once hemostasis was noted the fascia was approximated using 0 Vicryl simple running stitch. The incision was irrigated with warm saline, once hemostasis as noted, the subcuticular adipose tissue was reapproximated using 3- 0 Vicryl in a simple running fashion. Skin was approximated using 4-0 Vicryl on a Brennan needle in a subcuticular manner. Counts were correct x3. Patient tolerated the procedure well, she was taken to recovery room in stable condition.
--- NOTE | 2021-01-13 11:13 | Event Note ---
Date: 01/13/21 Prescriptions placed on chart
[2021-01-13] MEDS ORDERED: D5W/LACTATED RINGERS 1,000 ML IV SCH (12:00)
[2021-01-13 14:39] LABS: Hematocrit 34.9 % (30.3-42.9); Hemoglobin 11.6 gm/dl (10.1-14.3)
[2021-01-13 14:49] LABS: Alanine Aminotransferase 9 units/L (7-56); Albumin 3.3 g/dL (3.9-5)
[2021-01-13 15:03] LABS: Bilirubin,Direct < 0.2 mg/dL (0-0.2)
[2021-01-13] MEDS: KETOROLAC 30 MG/1 ML INJ IV SCH (16:01)
--- NOTE | 2021-01-13 16:56 | Event Note ---
Date: 01/13/21 Pt resting in bed, no complaints, denies H/A, blurred vision, epigastric pain. Will cont to watch for the next 6 hrs on L&D and reevaluate need for Mag Sulfate at that time. Plan discussed w/ pt, all questions addressed. Cont post-op course.
[2021-01-13] MEDS ORDERED: ceFAZolin/NS 1 GM/50 ML 1 GM/50 ML BAG IV SCH (18:00)
[2021-01-13] MEDS: ACETAMINOPHEN 500 MG TAB PO SCH (20:21)
--- NOTE | 2021-01-13 23:10 | Event Note ---
Date: 01/13/21 b/p reviewed 130-150/70-80's for the last 12 hrs since delivery. plan for magnesium sulfate x 24hrs. orders in EMR. Plan reviewed with pt and RN.
[2021-01-13] MEDS ORDERED: MAGNESIUM SULFATE 2 GM/50 ML BAG IV ONE (23:30)
[2021-01-13 23:37] LABS: Hematocrit 32.2 % (30.3-42.9); Hemoglobin 10.5 gm/dl (10.1-14.3)
[2021-01-14] MEDS: MAGNESIUM SULFATE 40GM/1000ML 40 GM/1,000 ML BAG IV SCH ×2 (00:42→21:44)
[2021-01-14] MEDS: KETOROLAC 30 MG/1 ML INJ IV SCH ×2 (01:14→10:30)
[2021-01-14] MEDS ORDERED: TETANUS,DIPH,PERTUSS(ACELL) VACCINE 0.5 ML SYRINGE IM ONE (06:00)
[2021-01-14] MEDS: ACETAMINOPHEN 500 MG TAB PO SCH (07:49)
--- NOTE | 2021-01-14 08:01 | Progress Note ---
Assessment and Plan A: 35 y.o. s/p primary , POD #1. Pre E on mag. P: Continue with care. Labetalol 200mg ordered. Mag d/t be discontinued @ 1140pm tonight. Will monitor for worsening s/sx of pre e. Will transfer to mother/baby after mag discontinued and blood pressures remain stable. Subjective - Subjective Date of service: 01/14/21 Principal diagnosis: s/p primary d/t failed IOL, pre e Patient reports: appetite normal, pain well controlled : doing well Objective - Vital Signs Latest vital signs: Vital Signs Temp Pulse Resp BP BP Pulse Ox Pulse Ox 01/14/21 07:56 64 99 01/14/21 07:51 77 99 01/14/21 07:46 64 98 01/14/21 07:41 78 100 01/14/21 07:36 69 99 01/14/21 07:31 73 138/77 96 01/14/21 07:26 63 98 01/14/21 07:21 63 97 01/14/21 07:16 67 96 01/14/21 07:11 64 99 01/14/21 07:06 97.7 F 70 16 147/76 99 99 01/14/21 07:01 59 L 148/74 97 01/14/21 06:56 62 96 01/14/21 06:51 57 L 98 01/14/21 06:46 57 L 97 01/14/21 06:41 61 98 01/14/21 06:36 58 L 97 01/14/21 06:32 58 L 131/69 01/14/21 06:31 60 99 01/14/21 06:26 57 L 98 01/14/21 06:21 56 L 98 01/14/21 06:16 59 L 98 01/14/21 06:11 58 L 98 01/14/21 06:06 61 98 01/14/21 06:01 66 154/75 99 01/14/21 05:56 68 99 01/14/21 05:51 64 98 01/14/21 05:46 80 97 01/14/21 05:41 70 98 01/14/21 05:36 66 99 01/14/21 05:32 68 157/77 01/14/21 05:31 67 97 01/14/21 05:26 74 98 01/14/21 05:21 66 98 01/14/21 05:16 67 99 01/14/21 05:11 69 98 01/14/21 05:06 77 97 01/14/21 05:02 71 164/82 01/14/21 05:01 76 98 01/14/21 04:56 80 98 01/14/21 04:51 69 97 01/14/21 04:46 65 97 01/14/21 04:41 66 98 01/14/21 04:36 72 99 01/14/21 04:32 65 154/80 01/14/21 04:31 66 99 01/14/21 04:26 78 97 01/14/21 04:25 97.4 F L 01/14/21 04:21 58 L 97 01/14/21 04:16 59 L 98 01/14/21 04:11 59 L 97 01/14/21 04:06 61 97 01/14/21 04:01 61 138/72 97 01/14/21 03:56 61 97 01/14/21 03:51 60 97 01/14/21 03:46 59 L 98 01/14/21 03:41 61 98 01/14/21 03:36 60 97 01/14/21 03:31 60 133/75 98 01/14/21 03:26 64 98 01/14/21 03:21 72 98 01/14/21 03:16 63 98 01/14/21 03:11 73 98 01/14/21 03:06 60 98 01/14/21 03:01 62 139/67 98 01/14/21 02:56 61 97 01/14/21 02:51 60 97 01/14/21 02:46 74 98 01/14/21 02:41 61 98 01/14/21 02:36 70 98 01/14/21 02:31 56 L 132/73 99 01/14/21 02:26 62 98 01/14/21 02:21 68 99 01/14/21 02:16 78 98 01/14/21 02:11 65 98 01/14/21 02:06 65 98 01/14/21 02:02 63 147/72 01/14/21 02:01 61 97 01/14/21 01:56 63 98 01/14/21 01:51 57 L 98 01/14/21 01:46 69 98 01/14/21 01:41 63 97 01/14/21 01:36 66 98 01/14/21 01:32 70 130/60 01/14/21 01:31 67 98 01/14/21 01:26 78 98 01/14/21 01:21 76 98 01/14/21 01:16 68 98 01/14/21 01:11 64 98 01/14/21 01:06 65 98 01/14/21 01:01 66 99 01/14/21 00:56 74 99 01/14/21 00:51 68 99 01/14/21 00:46 67 97 01/14/21 00:41 62 99 01/14/21 00:36 61 98 01/14/21 00:32 61 141/74 01/14/21 00:31 72 97 01/14/21 00:26 63 97 01/14/21 00:21 69 98 01/14/21 00:16 65 98 01/14/21 00:11 66 98 01/14/21 00:06 64 99 01/14/21 00:01 68 131/68 98 01/13/21 23:56 71 134/68 97 01/13/21 23:51 65 136/70 01/13/21 23:46 62 146/78 01/13/21 23:40 67 144/76 01/13/21 22:07 59 L 135/65 01/13/21 22:04 98.8 F 17 01/13/21 21:17 67 134/66 01/13/21 20:47 60 140/71 01/13/21 20:16 71 150/73 01/13/21 19:08 98.4 F 65 17 130/71 130/71 01/13/21 19:01 100 01/13/21 18:13 70 145/79 01/13/21 17:58 68 136/65 99 01/13/21 17:53 65 99 01/13/21 17:48 61 99 01/13/21 17:43 61 146/81 99 01/13/21 17:38 65 99 01/13/21 17:33 58 L 99 01/13/21 17:28 63 142/77 100 01/13/21 17:23 59 L 99 01/13/21 17:18 57 L 99 01/13/21 17:13 64 139/74 99 01/13/21 17:08 61 100 01/13/21 17:03 70 98 01/13/21 16:58 66 144/76 99 01/13/21 16:53 65 100 01/13/21 16:48 61 99 01/13/21 16:43 63 129/65 100 01/13/21 16:38 61 99 01/13/21 16:33 56 L 100 01/13/21 16:28 59 L 139/74 99 01/13/21 16:23 61 99 01/13/21 16:18 66 99 01/13/21 16:13 58 L 135/70 100 01/13/21 16:08 56 L 100 01/13/21 16:03 59 L 100 01/13/21 15:58 71 148/76 100 01/13/21 15:53 56 L 100 01/13/21 15:48 57 L 100 01/13/21 15:43 61 149/79 100 01/13/21 15:38 60 100 01/13/21 15:33 59 L 100 01/13/21 15:28 63 145/75 100 01/13/21 15:23 56 L 99 01/13/21 15:18 59 L 100 01/13/21 15:13 67 148/71 100 01/13/21 15:08 61 100 01/13/21 15:03 60 100 01/13/21 14:58 61 142/64 100 01/13/21 14:53 59 L 100 01/13/21 14:48 57 L 100 01/13/21 14:43 59 L 139/65 100 01/13/21 14:38 56 L 99 01/13/21 14:33 65 100 01/13/21 14:29 60 168/68 01/13/21 14:28 62 100 01/13/21 14:23 63 99 01/13/21 14:18 59 L 100 01/13/21 14:13 63 100 01/13/21 14:08 61 100 01/13/21 14:03 61 100 01/13/21 13:58 65 143/66 100 01/13/21 13:53 56 L 100 01/13/21 13:48 59 L 100 01/13/21 13:43 57 L 141/93 100 01/13/21 13:38 55 L 01/13/21 13:33 57 L 99 01/13/21 13:28 56 L 129/77 01/13/21 13:23 55 L 01/13/21 13:18 56 L 01/13/21 13:13 56 L 135/79 99 01/13/21 13:08 60 100 01/13/21 13:03 56 L 99 01/13/21 12:58 53 L 128/74 01/13/21 12:53 53 L 01/13/21 12:48 53 L 01/13/21 12:43 53 L 128/74 01/13/21 12:30 100 01/13/21 11:45 53 L 16 111/64 01/13/21 11:30 77 17 118/52 01/13/21 11:15 55 L 9 L 111/63 01/13/21 11:05 75 13 84/54 01/13/21 11:01 76 15 71/51 01/13/21 10:55 67 11 L 115/62 01/13/21 10:51 97.6 F 63 15 113/58 01/13/21 08:29 73 01/13/21 08:24 89 01/13/21 08:19 77 99 01/13/21 08:14 74 01/13/21 08:09 82 01/13/21 08:04 80 100 Intake and Output 01/13/21 01/14/21 01/14/21 22:59 06:59 14:59 Intake Total 108.750 Output Total 650 820 Balance -650 -711.250 Intake: IV 108.750 Lactated Ringers 1,000 ml 108.750 @ 125 mls/hr IV DIRECT TRES Rx#:[id number] Output: Urine 650 820 Indwelling Catheter 395 Uretheral (Kam) 650 Void 425 Other: Total, Output Amount 110 - Exam Narrative Exam: Pt doing well. Denies SWANSON, blurred vision, spots before her eyes, chest pain, shortness of breath, and upper abdominal pain. We discussed need for mag X 24 hours. Pt is concerned because she does not want the baby to go to the NICU. She was told that this would happen d/t to her being on Mag. For now, patient's will stay in the room so that the infant does not go to NICU. Blood pressure ranges have been mostly 140's/80's. Will add Labetalol 200mg. Dr. Whittaker aware. Will continue to monitor blood pressure. Breasts: Present: deferred Cardiovascular: Present: Normal S1, Normal S2 Lungs: Present: Clear to auscultation Abdomen: Present: normal appearance, soft Uterus: Present: normal, firm Extremities: Present: edema (Generalized trace edema noted) Deep Tendon Reflex Grade: Normal +2 Incision: Present: normal, intact, dressed (No drainage noted on dressing. ) - Labs Labs: Abnormal lab results 01/13/21 Range/Units 14:14 Creatinine 0.4 L (0.6-1.2) mg/dL Total Protein 5.9 L (6.3-8.2) g/dL Albumin 3.3 L (3.9-5) g/dL
--- NOTE | 2021-01-14 08:57 | Post Anesthesia Evaluation ---
- Post Anesthesia Evaluation Patient Participated: Yes Airway Patent: Yes Stable Respiratory Function: Yes Nausea/Vomiting: No Temp > 96.8F: Yes Pain Manageable: Yes Adequeate Hydration: Yes Anesthesia Complications: No Block Receding Appropriately: Yes Patient on Ventilator: No
[2021-01-14] MEDS: oxyCODONE /ACETAMINOPHEN 5-325MG TAB PO PRN ×2 (09:17→20:01)
[2021-01-14] MEDS: IBUPROFEN 800 MG TAB PO PRN (18:38)
[2021-01-15] MEDS: IBUPROFEN 800 MG TAB PO PRN (01:03)
[2021-01-15] MEDS: oxyCODONE /ACETAMINOPHEN 5-325MG TAB PO PRN ×3 (06:25→21:34)
--- NOTE | 2021-01-15 08:36 | Progress Note ---
Assessment and Plan Pt denies SWANSON, vision changes, and RUQ pain. POC and precautions reviewed. All questions and concerns addressed. Pt verbalizes understanding - Patient Problems (1) Preeclampsia Current Visit: Yes Status: Acute Qualifiers: Trimester: third trimester Qualified Code(s): O14.93 - Unspecified pre- eclampsia, third trimester Plan to address problem: A: 35 y.o. s/p primary , POD #2. Pre E s/p mag. P: Continue with care. Labetalol 200mg PO BID Will monitor for worsening s/sx of pre e. Strict I&O (2) delivery delivered Current Visit: Yes Status: Acute Plan to address problem: continue postop pathway Subjective - Subjective Date of service: 01/15/21 Principal diagnosis: s/p primary d/t failed IOL, pre e Interval history: EDC Confirmation: 01/30/2021 Past History : 2 Term Births: 0 Premature Births: 1 Living Children: 1 Para: 1 Mult. Births: 0 Prev : 0 Prev. attempt? 0 Aborta: 0 Elect. Ab: 0 Spont. 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 Infection History Hx of STD: none HIV Risk Eval: no Hepatitis B Risk Eval: low risk Personal hx. of genital herpes: no Partner hx. of genital herpes: no Rash, Viral, or Febrile illness since last LMP? no Varicella/Chicken Pox Status: Previous Disease TB Risk: no Genetic History ADVANCED MATERNAL AGE Congenital Heart Defect: Mom: no Dad: no Geoff Disease: Mom: no Dad: no Thalassemia Mom: no Dad: no Neural Tube Defect Mom: no Dad: no Down's Syndrome Mom: no Dad: no Montez-Sachs Mom: no Dad: no Sickle Cell Disease/Trait Mom: no Dad: no Hemophilia Mom: no Dad: no Muscular Dystrophy Mom: no Dad: no Cystic Fibrosis Mom: no Dad: no [place] Chorea Mom: no Dad: no Mental Retardation Mom: no Dad: no Fragile X Mom: no Dad: no Other Genetic/Chromosomal Disorder Mom: no Dad: no Child w/other defect Mom: no Dad: no Enviromental Exposures Xray Exposure: no Medication, drug, or alcohol use since LMP: no Chemical/Other Exposure: no Exposure to Cat Liter: no Hx of Parvovirus (Fifth Disease): no Occupational Exposure to Children: none Active Medications (reviewed today): ASPIRIN 81MG () PNV () Current Allergies: No known allergies Patient reports: appetite normal, voiding normally, pain well controlled, ambulating normally [place]: doing well, nursing well, bottle feeding Objective - Vital Signs Latest vital signs: Vital Signs Temp Pulse Resp BP BP Pulse Ox Pulse Ox 01/15/21 07:15 18 01/15/21 06:25 18 01/15/21 05:01 98.0 F 74 18 142/73 97 01/15/21 01:56 18 01/15/21 01:03 18 01/15/21 00:00 98.3 F 74 18 130/71 100 01/14/21 23:41 82 99 01/14/21 23:36 70 99 01/14/21 23:31 70 130/71 100 01/14/21 23:26 71 99 01/14/21 23:21 68 98 01/14/21 23:16 69 99 01/14/21 23:11 69 98 01/14/21 23:06 86 98 01/14/21 23:01 73 125/69 99 01/14/21 22:56 62 97 01/14/21 22:51 81 99 01/14/21 22:46 64 97 01/14/21 22:41 66 99 01/14/21 22:36 61 99 01/14/21 22:31 64 118/68 98 01/14/21 22:26 59 L 98 01/14/21 22:21 72 100 01/14/21 22:16 61 98 01/14/21 22:11 60 98 01/14/21 22:06 70 99 01/14/21 22:01 58 L 126/69 99 01/14/21 21:56 58 L 99 01/14/21 21:51 64 99 01/14/21 21:46 61 100 01/14/21 21:41 65 132/72 99 01/14/21 21:36 65 98 01/14/21 21:31 61 132/72 99 01/14/21 21:26 65 99 01/14/21 21:21 64 99 01/14/21 21:16 70 98 01/14/21 21:11 66 99 01/14/21 21:06 73 99 01/14/21 21:01 62 18 125/69 99 01/14/21 20:56 67 99 01/14/21 20:51 61 99 01/14/21 20:46 65 99 01/14/21 20:41 64 100 01/14/21 20:36 68 99 01/14/21 20:32 68 126/78 01/14/21 20:31 69 99 01/14/21 20:26 65 97 01/14/21 20:25 99 01/14/21 20:21 64 99 01/14/21 20:16 71 99 01/14/21 20:11 72 99 01/14/21 20:06 66 100 01/14/21 20:03 98.6 F 72 20 135/72 99 01/14/21 20:01 64 18 135/72 99 01/14/21 19:56 71 99 01/14/21 19:51 64 99 01/14/21 19:46 68 100 01/14/21 19:41 59 L 98 01/14/21 19:38 18 01/14/21 19:36 70 99 01/14/21 19:31 69 132/77 99 01/14/21 19:26 68 99 01/14/21 19:21 68 100 01/14/21 19:16 68 99 01/14/21 19:11 68 100 01/14/21 19:06 67 99 01/14/21 19:01 65 123/62 99 01/14/21 18:56 67 100 01/14/21 18:51 74 100 01/14/21 18:46 79 100 01/14/21 18:41 71 99 01/14/21 18:39 69 131/73 01/14/21 18:36 69 100 01/14/21 18:31 83 98 01/14/21 18:26 84 99 01/14/21 18:21 69 98 01/14/21 18:16 74 99 01/14/21 18:11 72 99 01/14/21 18:06 69 98 01/14/21 18:01 61 125/63 98 01/14/21 17:56 63 99 01/14/21 17:51 65 100 01/14/21 17:46 69 100 01/14/21 17:41 66 99 01/14/21 17:36 70 99 01/14/21 17:31 67 135/77 99 01/14/21 17:26 75 99 01/14/21 17:21 85 98 01/14/21 17:16 71 100 01/14/21 17:11 65 99 01/14/21 17:06 72 100 01/14/21 17:05 16 100 01/14/21 17:01 75 117/70 99 01/14/21 16:56 72 99 01/14/21 16:51 70 97 01/14/21 16:46 66 98 01/14/21 16:41 66 98 01/14/21 16:36 73 129/68 98 01/14/21 16:31 70 99 01/14/21 16:26 72 99 01/14/21 16:21 63 98 01/14/21 16:16 66 98 01/14/21 16:11 64 98 01/14/21 16:06 69 97 01/14/21 16:01 68 98 01/14/21 15:56 77 99 01/14/21 15:51 76 98 01/14/21 15:46 74 99 01/14/21 15:41 68 99 01/14/21 15:36 72 99 01/14/21 15:31 77 129/69 99 01/14/21 15:26 80 98 01/14/21 15:21 85 97 01/14/21 15:16 78 97 01/14/21 15:11 88 98 01/14/21 15:06 89 99 01/14/21 15:05 98.7 F 16 99 01/14/21 15:01 75 116/56 99 01/14/21 14:56 85 99 01/14/21 14:51 73 99 01/14/21 14:46 78 98 01/14/21 14:41 62 96 01/14/21 14:36 71 98 01/14/21 14:32 73 105/58 01/14/21 14:31 74 99 01/14/21 14:26 64 97 01/14/21 14:21 83 97 01/14/21 14:16 69 97 01/14/21 14:11 62 97 01/14/21 14:06 64 98 01/14/21 14:01 70 98 01/14/21 13:56 76 99 01/14/21 13:51 71 98 01/14/21 13:46 69 98 01/14/21 13:41 71 98 01/14/21 13:36 68 98 01/14/21 13:31 72 99 01/14/21 13:26 75 99 01/14/21 13:21 80 99 01/14/21 13:16 79 98 01/14/21 13:11 77 98 01/14/21 13:06 72 99 01/14/21 13:05 18 99 01/14/21 13:01 75 99 01/14/21 12:56 70 98 01/14/21 12:51 73 98 01/14/21 12:46 69 98 01/14/21 12:41 77 98 01/14/21 12:36 79 99 01/14/21 12:31 85 98 01/14/21 12:26 73 98 01/14/21 12:21 77 98 01/14/21 12:16 69 98 01/14/21 12:11 85 98 01/14/21 12:06 87 97 01/14/21 12:01 86 112/61 98 01/14/21 11:56 87 99 01/14/21 11:51 85 97 01/14/21 11:46 81 99 01/14/21 11:41 72 98 01/14/21 11:36 69 100 01/14/21 11:31 70 118/66 99 01/14/21 11:26 68 99 01/14/21 11:21 66 98 01/14/21 11:16 73 99 01/14/21 11:11 73 98 01/14/21 11:06 74 99 01/14/21 11:05 98.3 F 14 99 01/14/21 11:02 68 106/58 01/14/21 11:01 70 99 09/29/21 10:56 67 96 01/14/21 10:51 95 H 98 01/14/21 10:46 67 97 01/14/21 10:41 65 96 01/14/21 10:36 71 95 01/14/21 10:31 68 118/62 97 01/14/21 10:26 70 130/67 98 01/14/21 10:21 74 98 01/14/21 10:20 70 94 01/14/21 10:16 81 98 01/14/21 10:11 77 99 01/14/21 10:06 74 97 01/14/21 10:01 70 98 01/14/21 09:56 68 98 01/14/21 09:51 74 98 01/14/21 09:46 70 98 01/14/21 09:41 74 97 01/14/21 09:36 70 98 01/14/21 09:31 63 141/74 97 01/14/21 09:26 61 98 01/14/21 09:21 61 97 01/14/21 09:16 66 149/75 99 01/14/21 09:11 64 98 01/14/21 09:06 70 98 01/14/21 09:05 16 98 01/14/21 09:01 66 149/75 98 01/14/21 08:56 63 98 01/14/21 08:51 73 99 01/14/21 08:46 71 99 01/14/21 08:41 77 97 Intake and Output 01/14/21 01/15/21 01/15/21 23:59 07:59 15:59 Intake Total 1000 480 Output Total 650 850 Balance 350 -370 Intake: IV 1000 MAGNESIUM SULFATE 40GM/ 1000 1000ML 40 gm In 1,000 ml @ 2 GM/HR 50 mls/hr IV DIRECT TRES Rx#:[id number] Oral 480 Output: Urine 650 850 Indwelling Catheter 650 550 Void 300 Other: Total, Intake Amount 480 Total, Output Amount 200 300 # Voids Void 1 - Exam Breasts: Present: normal Cardiovascular: Present: Regular rate Lungs: Present: Normal air movement Abdomen: Present: normal appearance, soft. Absent: distention, guarding Vulva: both: normal Uterus: Present: normal, firm Extremities: Present: edema (1+ BLE) Incision: Present: normal, dressed - Labs Labs: Abnormal lab results 01/14/21 Range/Units 12:58 Magnesium 4.40 H (1.7-2.3) mg/dL
[2021-01-16] MEDS: oxyCODONE /ACETAMINOPHEN 5-325MG TAB PO PRN ×2 (05:17→10:47)
[2021-01-16] MEDS: IBUPROFEN 800 MG TAB PO PRN (08:15)
--- NOTE | 2021-01-16 08:19 | Discharge Summary ---
Providers - Providers Date of Admission: 01/09/21 20:32 Date of discharge: 01/16/21 Attending physician: DIOR ALCARAZ MD 01/13/21 10:55 Consult to Industrial Equipment Mechanic [CONS] Routine Reason For Exam: Primary care physician: YOANA COON Hospitalization Reason for admission: IOL Condition: Stable Pertinent studies: B/P 120'2/60's; H&H 10.5/32.2 Procedures: Primary for Failed IOL for Pre-E, Mag Sulfate for Neuro Protection Hospital course: Uncomplicated and course Disposition: 01 HOME / SELF CARE / HOMELESS Final Discharge Diagnosis (Prints w/discharge instructions): - Discharge Diagnoses (1) Preeclampsia Status: Acute Qualifiers: Trimester: third trimester Qualified Code(s): O14.93 - Unspecified pre- eclampsia, third trimester (2) delivery delivered Status: Acute Core Measure Documentation - Palliative Care Palliative Care/ Comfort Measures: Not Applicable - Core Measures Any of the following diagnoses?: none Exam - Constitutional Vitals: Temp Pulse Resp BP Pulse Ox 97.9 F 74 18 128/63 99 01/16/21 05:44 01/16/21 05:44 01/16/21 06:17 01/16/21 05:44 01/16/21 05:44 General appearance: Present: no acute distress, well-nourished - EENT Eyes: Present: PERRL ENT: hearing intact, clear oral mucosa - Neck Neck: Present: supple, normal ROM - Respiratory Respiratory effort: normal Respiratory: bilateral: CTA - Cardiovascular Heart Sounds: Present: S1 & S2. Absent: rub, click - Extremities Extremities: pulses symmetrical, No edema Peripheral Pulses: within normal limits - Abdominal General gastrointestinal: Present: soft, non-tender, non-distended, normal bowel sounds Female genitourinary: Present: normal - Integumentary Integumentary: Present: clear, warm, dry - Musculoskeletal Musculoskeletal: gait normal, strength equal bilaterally - Psychiatric Psychiatric: appropriate mood/affect, intact judgment & insight - Neurologic Neurologic: CNII-XII intact, moves all extremities - Additional findings Additional findings: incision healing and edges approximated Plan Activity: advance as tolerated Diet: regular Wound: open to air, keep clean and dry Follow up with: YOANA COON MD [Primary Care Provider] - 7 Days (Congratulations!! Please call [phone] to schedule your incision check and B/P check for 1 week. Call for any questions or concerns. ) Prescriptions: Ibuprofen [Motrin 800 MG tab] 800 mg PO TID PRN #30 tablet PRN Reason: Pain oxyCODONE /ACETAMINOPHEN [Percocet 5/325 mg] 1 - 2 tab PO Q6HR PRN #14 tablet PRN Reason: Pain
[2021-01-16 11:53] VITALS: BP 142/75
== END 2021-01-16 12:10 | disposition home or self-care (01) | DRG 766 ==
LOC: LD 20:32 → OB 01-15 01:00
PROVIDERS: ADMIT Student in an Organized Health Care Education/Training Program; ATTEND Student in an Organized Health Care Education/Training Program
PROC: 10D00Z1 Extraction of Products of Conception, Low, Open Approach (ICD-10-PCS; principal; 2021-01-13)
PROC: 3E0234Z Introduction of Serum, Toxoid and Vaccine into Muscle, Percutaneous Approach (ICD-10-PCS; 2021-01-13)
PROC: 3E033VJ Introduction of Other Hormone into Peripheral Vein, Percutaneous Approach (ICD-10-PCS; 2021-01-13)
PROC: 0U7C7ZZ Dilation of Cervix, Via Natural or Artificial Opening (ICD-10-PCS; 2021-01-13)
DX: O14.04 Mild to moderate pre-eclampsia, complicating childbirth (principal); Z3A.37 37 weeks gestation of pregnancy; Z20.822 Contact with and (suspected) exposure to COVID-19; Z37.0 Single live birth; Z23 Encounter for immunization; O69.81X0 Labor and delivery complicated by cord around neck, without compression, not applicable or unspecified; O62.0 Primary inadequate contractions; N73.6 Female pelvic peritoneal adhesions (postinfective)
CPT/HCPCS: 36415; 59200; 76815; 80076; 81001; 82565; 83615; 83735; 84450; 84460; 84550; 85014; 85018; 85027; 85049; 86592; 86850; 86900; 86901; G0378; J0690; J1100; J1885; J2270; J2370; J2405; J2590; J2765; J3475; J3490; J7120; U0003